=== PATIENT | male | born 1945 | race Caucasian/White ===

== ENCOUNTER 2018-07-16 00:41 | Inpatient (IN) | payer MEDICARE ==
[~2018-07-16] VITALS: Ht 175.3 cm; Wt 88.1 kg
[2018-07-16 02:09] LABS: BASOPHILS % 0.3 % (0.0-1.0); EOSINOPHILS # (AUTO) 0.6 (0.0-0.4); EOSINOPHILS % 5.2 % (0.0-6.0); HEMOGLOBIN 10.9 g/dL (14.0-18.0); LYMPHOCYTES # (AUTO) 1.9 (1.0-3.2); LYMPHOCYTES % 16.4 % (18.0-39.1); MEAN CORPUSCULAR HEMOGLOBIN 30.1 pg (28-32); MEAN CORPUSCULAR VOLUME 91.2 fL (81-99); MONOCYTES # (AUTO) 0.6 (0.2-0.8); MONOCYTES % 5.2 % (4.4-11.3); NEUTROPHILS # (AUTO) 8.3 (2.1-6.9); NEUTROPHILS % 72.3 % (38.7-80.0); PLATELET COUNT 183 x10e3/uL (140-360); RED BLOOD COUNT 3.62 x10e6/uL (4.3-5.7); RED CELL DISTRIBUTION WIDTH 13.6 % (11.7-14.4)
[2018-07-16 02:12] LABS: CLARITY,URINE CLEAR (CLEAR); COLOR,URINE YELLOW (YELLOW)
[2018-07-16 02:13] LABS: BILIRUBIN,URINE NEGATIVE (NEGATIVE); KETONES,URINE NEGATIVE (NEGATIVE); LEUKOCYTE ESTERASE ,URINE NEGATIVE (NEGATIVE); NITRITE,URINE NEGATIVE (NEGATIVE); PROTEIN,URINE DIPSTICK 2+ (NEGATIVE); URINE UROBILINOGEN 0.2 mg/dL (0.2 - 1)
[2018-07-16 02:16] LABS: INR 1.01; PROTHROMBIN TIME 14.2 seconds (11.9-14.5)
--- NOTE | 2018-07-16 02:19 | Diagnostic Imaging Report ---
EXAM: CHEST 2 VIEWS, PA and lateral INDICATION: Shortness of breath COMPARISON: None FINDINGS: LINES/TUBES: None LUNGS: Pulmonary edema. PLEURA: Trace bilateral pleural effusions. HEART AND MEDIASTINUM: Cardiac silhouette the upper limits of normal in size. Median sternotomy wires. BONES AND SOFT TISSUES: No acute findings. IMPRESSION: Pulmonary edema and trace bilateral pleural effusions. Signed by: Dr. Steff Rosa M.D. on 07/16/2018 2:16 AM
[2018-07-16 02:25] LABS: RBC,URINE 0-5 /HPF (0-5)
[2018-07-16 02:26] LABS: WBC,URINE (MAN) 0-5 /HPF (0-5)
[2018-07-16 02:27] LABS: ALBUMIN 3.5 g/dL (3.5-5.0); ALBUMIN/GLOBULIN RATIO 0.9 (0.8-2.0); ANION GAP 19.9 mmol/L (8-16); BACTERIA,URINE FEW /HPF; CALCIUM 9.3 mg/dL (8.4-10.2); CREATININE, SERUM 3.83 mg/dL (0.72-1.25); EPITHELIAL CELLS,URINE FEW /LPF; MAGNESIUM 1.9 MG/DL (1.3-2.1); POTASSIUM 3.9 mmol/L (3.5-5.1)
[2018-07-16 02:33] LABS: CREATINE KINASE MB 2.4 ng/mL (0-5.0)
[2018-07-16 02:39] LABS: PARTIAL THROMBOPLASTIN TIME 42.2 seconds (23.8-35.5)
[2018-07-16] MEDS ORDERED: FUROSEMIDE INJ 10 MG/ML 4 ML VIAL IV ONE (03:45)
[2018-07-16] MEDS ORDERED: ONDANSETRON HCL INJ 2 MG/ML VIAL IV PRN ×2 (04:45→11:00)
[2018-07-16] MEDS ORDERED: MORPHINE SULFATE 2 MG/ML SYR IV PRN (04:45)
[2018-07-16] MEDS ORDERED: LEVOTHYROXINE50 MCG PO (05:42)
[2018-07-16] MEDS ORDERED: ASPIRIN EC81 MG PO (05:42)
[2018-07-16] MEDS ORDERED: DOXAZOSIN MESYLA4 MG PO (05:42)
[2018-07-16] MEDS ORDERED: LOVASTATIN40 MG PO (05:42)
[2018-07-16] MEDS ORDERED: METOPROLOL TART50 MG PO (05:42)
[2018-07-16] MEDS ORDERED: AMLODIPINE BESY10 MG PO (05:42)
[2018-07-16] MEDS ORDERED: ALLOPURINOL100 MG PO (05:42)
[2018-07-16] MEDS ORDERED: DONEPEZIL HCL10 MG PO (05:42)
[2018-07-16] MEDS ORDERED: HYDRALAZINE HC100 MG PO (05:42)
[2018-07-16] MEDS: METOPROLOL TARTRATE 50 MG TAB PO SCH ×3 (06:04→17:51)
[2018-07-16 08:08] LABS: CREATINE KINASE MB 2.5 ng/mL (0-5.0)
[2018-07-16] MEDS: FAMOTIDINE 20 MG/2 ML VIAL IV SCH ×2 (09:52→20:53)
[2018-07-16] MEDS: ASPIRIN 81 MG ENTERIC COATED PO SCH (09:53)
[2018-07-16] MEDS ORDERED: ACETAMINOPHEN 325 MG TAB PO PRN (11:00)
--- NOTE | 2018-07-16 12:43 | History and Physical ---
CHIEF COMPLAINT: Shortness of breath on exertion. HPI: This is a 73-year-old male, in which he reports having a history of CABG many years ago, hypertension, hyperlipidemia, who is very noncompliant with his diet at home, comes in to the ED last night due to complaints of orthopnea and dyspnea on exertion. Patient reports that he has been having this for the last 3 days. He reports that he has significant amount of salt intake at home including orr and spam and he does eat some ___056___. He reports shortness of breath upon exertion, in which he gets very short winded. He denies any chest pain or palpitations. Denies any recent cough, congestion, or any fever. No history of allergies. Patient seen and evaluated at bedside on the medical floor, currently doing well in the ER. He is very tachypneic on examination. REVIEW OF SYSTEMS PERTINENT POSITIVE: Orthopnea, dyspnea on exertion, generalized weakness, and fatigue. PERTINENT NEGATIVE: Denies any chest pain, palpitation, nausea, vomiting, diarrhea, dysuria hematuria, frequency, urgency, lightheadedness, dizziness, abdominal pain, headache, cough, congestion, fever, or any other complaints. The rest of 14-point review of systems has been reviewed with the patient and are negative. ALLERGIES: NO KNOWN DRUG ALLERGIES. HOME MEDICATIONS: He takes; 1. Allopurinol 100 mg daily. 2. Norvasc 10 mg daily. 3. Aspirin 81 mg daily. 4. Hydralazine as needed. 5. Levothyroxine 50 mcg daily. 6. Lovastatin 40 mg daily. 7. Metoprolol tartrate 50 mg p.o. b.i.d. PAST MEDICAL HISTORY: He has history of gout, hypertension, heart failure with CABG in the past, hyperlipidemia, history of dementia. SURGICAL HISTORY: History of CABG in the past. FAMILY HISTORY: Hypertension and diabetes. SOCIAL HISTORY: No drugs. No alcohol. Does not smoke. Good social support. PHYSICAL EXAMINATION VITAL SIGNS: Temperature is 98.5, pulse is 126, respiratory rate is 20, blood pressure 137/94, pulse ox 98% on room air. GENERAL: Not in acute distress, alert and oriented x3. Cooperative on examination. HEENT: Head normocephalic and atraumatic. Eyes; pupils equal and reactive to light bilaterally. Extraocular movements are intact bilaterally. Throat; no evidence of erythema or exudates in the posterior pharynx. Has poor dentition. NECK: Supple. Good range of motion. PULMONARY: Clear to auscultation bilaterally. Positive rales bilaterally. Mild crackles appreciated in the lower bases. No wheezing appreciated. CARDIOVASCULAR: Positive S1, S2. No murmurs, rubus, or gallops appreciated. ABDOMEN: Soft, nondistended, nontender to palpation. Bowel sounds present. MUSCULOSKELETAL: Strength is 5/5 throughout. No evidence of any musculoskeletal deficit on examination. No weakness appreciated. NEUROLOGIC: Cranial nerves II through XII are grossly intact. No evidence of any neurological deficit on exam. SKIN: Intact. Warm to touch. Good cap refill. PSYCHIATRIC: Normal affect and mood. EXTREMITIES: No edema. Good range of motion throughout. LAB FINDINGS: Show white count of 11.4, hemoglobin 10.9, hematocrit is 33, and platelets of 183. Coagulation; PT 14.2, INR 1, and PTT 42. Chemistry; sodium 142, potassium 3.9, chloride 111, bicarb 15, anion gap of 19, BUN is 38, creatinine 3.8, glucose 98, calcium 9.3, magnesium 1.9, total bilirubin is 0.6, AST 19, ALT 12, alk phos 77. CK is 46, troponin is 0.88, BNP 453. Total protein 7.2, albumin is 2.5. Urinalysis was found to be negative. IMAGING STUDIES: Chest x-ray; pulmonary edema with trace bilateral pleural effusion. IMPRESSION 1. Acute exacerbation of congestive heart failure, likely systolic and diastolic dysfunction. 2. Chronic kidney disease, stage 4-5. 3. Hypertension. 4. Hyperlipidemia. 5. Benign prostatic hypertrophy. 6. Medical noncompliance. 7. Anasarca. PLAN: At this time, cardiology will be consulted. A 2D echocardiogram has been performed, but pending final read. Put him on Lasix 40 mg IV q.6 hours x4 doses. Replace potassium. Resume all antihypertensive medications except for LINDA and ARBs. In relation to his renal failure, I am going to get a renal ultrasound to evaluate for chronicity of disease and possibly underlying obstruction. I have no other creatinine to compare. We are going to get a lipid panel and continue with oral simvastatin. For prophylaxis, we will put him on heparin. Fluid, electrolytes, and nutrients. We will put him on a heart-healthy diet. No IV fluids indicated. We will get PT/OT eval as well. We will start on anti-nausea medication as well as Tylenol p.r.n. Job#: [id number] H[place]
[2018-07-16] MEDS: FUROSEMIDE INJ 10 MG/ML 4 ML VIAL IV SCH ×3 (13:00→23:28)
[2018-07-16 16:14] LABS: CREATINE KINASE MB 2.2 ng/mL (0-5.0)
[2018-07-16] MEDS ORDERED: METOPROLOL TARTRATE 50 MG TAB PO SCH (17:00)
[2018-07-16] MEDS: SODIUM BICARBONATE 650 MG TAB PO SCH (17:52)
--- NOTE | 2018-07-16 18:10 | NUR ---
RECEIVED TO RM AAOX3 NO DISTRESS NOTED, UPDATED ON POC VOICED UNDERSTANDING, O2 @ 2l NC, L AC 20G SL NO SS OF INFILTRATION NOTED, BRIGHT TO BSD WITH YELLOW URINE NOTED, RESPIRATORY EVEN/ UNLABORED, DENIES PAIN, PITTED EDEMA TO BLE, NO OTHER CO VOICED CALL LIGHT IN REACH WILL CONTINUE TO MONITOR
[2018-07-16 18:42] VITALS: BP 140/84
--- NOTE | 2018-07-16 19:20 | NUR ---
Received patient awake on bed, with oxygen support via NC at 2L.Reinoso catheter in place, draining yellow urine output. Call light within reached, bed alarm on, bed in low position and locked. Advised patient to call for assistance when needed. Patient instructed complete bed rest. Patient is wheezing and short of breath. HR runs in the 130's, Dr. Smith is aware per dayshift, patient on Lopressor po BID. Will continue to monitor closely
--- NOTE | 2018-07-16 19:30 | NUR ---
Called RT to check if patient has breathing treatment due, no breathing treatment ordered. Will follow up with
--- NOTE | 2018-07-16 19:50 | NUR ---
Spoke to Dr. Nuñez and relayed events with orders for Xopenex Q6H PRN
[2018-07-16 20:00] VITALS: BP 109/91
[2018-07-16] MEDS: LEVALBUTEROL HCL SOLN NEBU 1.25 MG/3 ML NEB INH PRN (20:30)
[2018-07-16] MEDS: DONEPEZIL HCL 5 MG TAB PO SCH (20:53)
[2018-07-16] MEDS: HEPARIN SOD (PORCINE) 5,000 UNIT/ML VIAL SC SCH (20:54)
[2018-07-16] MEDS: SIMVASTATIN 40 MG TAB PO SCH (20:54)
[2018-07-16 21:00] VITALS: BP 109/91
--- NOTE | 2018-07-16 21:34 | NUR ---
Cardiology Consult Dictation# [id number]
[2018-07-16 23:52] LABS: CHOL/HDL RATIO 3.5 (3.9-4.7)
[2018-07-17] VITALS (7 sets, daily range): BP systolic 116–142; BP diastolic 72–88
[2018-07-17] MEDS: LEVALBUTEROL HCL SOLN NEBU 1.25 MG/3 ML NEB INH PRN (01:05)
--- NOTE | 2018-07-17 01:06 | Consultation ---
DATE OF CONSULTATION: July 16, 2018 CARDIOLOGY CONSULTATION REQUESTING PHYSICIAN: Dr. Lucretia Nuñez REASON FOR CONSULTATION: Congestive heart failure. HISTORY OF PRESENT ILLNESS: This is a 73-year-old man with history of coronary artery disease status post 4-vessel CABG, hypertension, and hyperlipidemia, who presented with complaints of shortness of breath. The patient indicates he has been short of breath with symptoms suggestive of orthopnea and PND for the last 2 days. He reports occasional palpitations, but denies any chest pain or lower extremity edema. Cardiology is consulted for management of patient's congestive heart failure. On evaluation in the ER, the patient was found to have creatinine elevation to 3.83 with an elevated BNP at 454. Chest x-ray demonstrated pulmonary edema and trace bilateral pleural effusions. REVIEW OF SYSTEMS: Negative except as per HPI. PAST MEDICAL HISTORY: 1. Coronary artery disease status post 4-vessel CABG. 2. Hypertension. 3. Hyperlipidemia. PAST SURGICAL HISTORY: Coronary artery bypass surgery. ALLERGIES: NO KNOWN DRUG ALLERGIES. MEDICATIONS: Please see EMR. SOCIAL HISTORY: Denies tobacco, alcohol, or illicit drugs. FAMILY HISTORY: Pertinent for brother with congestive heart failure. PHYSICAL EXAMINATION: VITAL SIGNS: Temperature 98.5 degrees, pulse 130, respiratory rate 17, blood pressure 134/88, oxygen saturation 96% on 2 liters nasal cannula. GENERAL: Obese gentleman, well developed, well nourished. HEENT: Normocephalic, atraumatic. Pupils equal. No scleral icterus. NECK: Supple. No thyromegaly or cervical lymphadenopathy. No carotid bruits. LUNGS: Clear to auscultation with crackles in bilateral bases. No wheezes. CARDIOVASCULAR: Tachycardic but regular. No murmur. Normal S1 and S2. ABDOMEN: Soft, nontender. EXTREMITIES: 1+ pitting edema bilaterally. NEURO: Nonfocal exam. LABS: Sodium 142, potassium 3.9, chloride 111, CO2 15, BUN 38, creatinine 3.83. Troponin 0.63. BNP 454. WBC 11.43, hemoglobin 10.9, hematocrit 33, platelets 183,000. INR 1.01. EKG, normal sinus rhythm, possible left atrial enlargement, nonspecific ST and T-wave abnormalities. IMPRESSION: 1. Kdtci-md-pcfyimz systolic heart failure. 2. Acute kidney injury versus chronic kidney disease. 3. Sinus tachycardia. 4. Hypertension. 5. Hyperlipidemia. RECOMMENDATIONS: Agree with diuresis. Continue home cardiac medications. However, given systolic heart failure, would discontinue amlodipine, so patient may have adequate blood pressure room for titration of his optimal heart failure therapy. Monitor creatinine closely. Replete electrolytes. Patient indicates no history of congestive heart failure. We will need to perform ischemic evaluation if that is the case if his renal function permits. Check lipid panel in the morning. Would not increase beta blockade at this time as patient is in congestive heart failure exacerbation. Monitor patient closely on telemetry. Thank you for this consult. We will continue to follow. Job#: [id number] DR STEELE
[2018-07-17 05:47] LABS: BASOPHILS # (AUTO) 0.1 (0.0-0.1); BASOPHILS % 0.4 % (0.0-1.0); EOSINOPHILS # (AUTO) 0.2 (0.0-0.4); EOSINOPHILS % 1.8 % (0.0-6.0); HEMATOCRIT 32.1 % (38.2-49.6); HEMOGLOBIN 10.5 g/dL (14.0-18.0); LYMPHOCYTES # (AUTO) 2.2 (1.0-3.2); LYMPHOCYTES % 18.6 % (18.0-39.1); MEAN CORPUSCULAR HEMOGLOBIN 30.1 pg (28-32); MEAN CORPUSCULAR HGB CONC 32.7 g/dL (31-35); MONOCYTES # (AUTO) 0.6 (0.2-0.8); MONOCYTES % 4.9 % (4.4-11.3); NEUTROPHILS # (AUTO) 8.8 (2.1-6.9); NEUTROPHILS % 73.6 % (38.7-80.0); PLATELET COUNT 209 x10e3/uL (140-360); RED BLOOD COUNT 3.49 x10e6/uL (4.3-5.7); RED CELL DISTRIBUTION WIDTH 13.7 % (11.7-14.4)
[2018-07-17] MEDS: FUROSEMIDE INJ 10 MG/ML 4 ML VIAL IV SCH ×4 (05:51→23:28)
[2018-07-17] MEDS: LEVOTHYROXINE SODIUM 50 MCG TAB PO SCH (05:52)
[2018-07-17 06:04] LABS: ALBUMIN 3.3 g/dL (3.5-5.0); ANION GAP 20.1 mmol/L (8-16); CALCIUM 9.2 mg/dL (8.4-10.2); CHOL/HDL RATIO 4.1 (3.9-4.7); CREATININE, SERUM 4.18 mg/dL (0.72-1.25); POTASSIUM 4.1 mmol/L (3.5-5.1)
[2018-07-17] MEDS ORDERED: AMLODIPINE BESYLATE 10 MG TAB PO SCH (09:00)
[2018-07-17] MEDS ORDERED: ASPIRIN 81 MG ENTERIC COATED PO SCH (09:00)
[2018-07-17] MEDS: FAMOTIDINE 20 MG/2 ML VIAL IV SCH ×2 (09:15→21:40)
[2018-07-17] MEDS: ASPIRIN 81 MG ENTERIC COATED PO SCH (09:15)
[2018-07-17] MEDS: DOXAZOSIN MESYLATE 2 MG TAB PO SCH (09:15)
[2018-07-17] MEDS: SODIUM BICARBONATE 650 MG TAB PO SCH ×2 (09:16→17:02)
[2018-07-17] MEDS: ALLOPURINOL 100 MG TAB PO SCH (09:16)
[2018-07-17] MEDS: METOPROLOL TARTRATE 50 MG TAB PO SCH ×2 (09:17→17:02)
[2018-07-17] MEDS: HEPARIN SOD (PORCINE) 5,000 UNIT/ML VIAL SC SCH ×2 (09:42→21:41)
[2018-07-17] MEDS ORDERED: METHYLPREDNISOLONE SOD SUCC 40 MG/ML VIAL IV SCH (10:00)
[2018-07-17] MEDS: METHYLPREDNISOLONE SOD SUCC 40 MG/ML VIAL IV SCH ×2 (10:44→18:12)
--- NOTE | 2018-07-17 10:44 | Progress Note ---
DATE: July 17, 2018 SUBJECTIVE: The patient still has some wheezing and shortness of breath on examination. Denies any chest pain. He had a significant amount of urine output. OBJECTIVE VITAL SIGNS: Temperature is 98.3. His pulse is 131. Blood pressure 142/88. Pulse ox 99%, and he is on 3 liters nasal cannula. LAB FINDINGS: White count 11.9, hemoglobin 10.5, hematocrit 32, platelets 209. Coagulation: PT 14, INR 1, PTT 42. Chemistry: Sodium 143, potassium 4.1, chloride 109, bicarb 18, anion gap 20, BUN 45, creatinine 4.1. Glucose is 88. Calcium 9.2. LFTs were normal. Urinalysis is negative. IMAGING STUDIES: None. PHYSICAL EXAMINATION GENERAL: Not in acute distress, alert and oriented x3. Cooperative on examination. HEENT: Head is normocephalic and atraumatic. Eyes: Pupils are equal and reactive to light bilaterally. Extraocular movements are intact bilaterally. NECK: Supple. Good range of motion. THROAT: No evidence of erythema or exudates in the posterior pharynx. Has poor dentition. PULMONARY: He has expiratory wheezing appreciated. Fine crackles and rales. CARDIOVASCULAR: Positive S1, S2. No murmurs, rubs, or gallops appreciated. ABDOMEN: Soft, nondistended, nontender to palpation. Bowel sounds present. MUSCULOSKELETAL: Strength is 5/5 throughout. No evidence of any muscle deficit on examination. No weakness appreciated. NEUROLOGIC: Cranial nerves II through XII are grossly intact. No evidence of any neurological deficit on exam. SKIN: Intact. Warm to touch. Good cap refill. PSYCHIATRIC: Normal affect and mood. EXTREMITIES: He has 2+ pedal edema bilaterally with anasarca. IMPRESSION 1. Acute exacerbation of congestive heart failure, with systolic and diastolic dysfunction. Concern for underlying cardiorenal syndrome. 2. Chronic kidney disease, stage 4-5, likely due to underlying cardiorenal syndrome with last creatinine back in November 2017 at primary care physician's office to be 3.3. 3. Hypertension. 4. Hyperlipidemia. 5. BPH. 6. Medical noncompliance. 7. Anasarca. PLAN: At this time, I will continue with IV diuretic 60 mg IV q.6 h. I discussed with him about the possible need of hemodialysis, and he does not seem to be in agreement at this time. I will continue with IV diuretics aggressively to help his shortness of breath. I will also add some IV Solu-Medrol. We will repeat labs in the morning. Avoid ACEs and ARBs. In relation to his cardiac issues, it seems like if I put him on dialysis, then a left heart cath would be advisable; but at this time, he is not in agreement to any kind of hemodialysis, so we will just continue to aggressively diuresis him and talk to him on a daily basis. Will put him on a healthy heart diet. Continue with PT and OT. Will continue to monitor him closely. We will get a chest x-ray in the morning. Job#: [id number]
--- NOTE | 2018-07-17 12:25 | Progress Note ---
DATE: July 17, 2018 CARDIOLOGY PROGRESS NOTE SUBJECTIVE: Patient denies chest pain. He reports his breathing is better. OBJECTIVE VITAL SIGNS: Temperature 97.6 degrees, pulse 113, respiratory rate 19, blood pressure 142/88, oxygen saturation 94% on 3 L nasal cannula. GENERAL: Obese gentleman, in no acute distress. Awake and alert. LUNGS: Clear to auscultation bilaterally. No wheezes or crackles. CARDIOVASCULAR: Tachycardic, but regular. No murmur. Normal S1, S2. ABDOMEN: Soft, nontender. EXTREMITIES: 1+ pitting edema bilaterally. CARDIAC MEDICATIONS 1. Metoprolol 50 mg p.o. b.i.d. 2. Doxazosin 4 mg p.o. daily. 3. Aspirin 81 mg p.o. q.a.m. 4. Levothyroxine 50 mcg p.o. daily. 5. Furosemide 60 mg IV q.6 hours. LABS: WBC 11.92, hemoglobin 10.5, hematocrit 32.1, platelets 209. Sodium 143, potassium 4.1, chloride 109, CO2 of 28, BUN 45, creatinine 4.18. TELEMETRY: Sinus tachycardia. IMPRESSION 1. Mgmdv-cb-pzncpzj systolic heart failure. 2. Acute kidney injury versus chronic kidney disease. 3. Sinus tachycardia. 4. Hypertension. 5. Hyperlipidemia. RECOMMENDATIONS: Continue diuresis. Recommend continuation of metoprolol at current dose. He will need addition of LINDA/ARB if his creatinine improves. Monitor closely. Patient will need ischemic evaluation if renal function permits once he is euvolemic. Watch closely on telemetry. Thank you for this consult. We will continue to follow. Job#: [id number] KARRI STEELE
--- NOTE | 2018-07-17 12:55 | Diagnostic Imaging Report ---
EXAMINATION: Renal ultrasound. CLINICAL HISTORY :Acute kidney injury COMPARISON: <None available.> TECHNIQUE: Grayscale and color Doppler evaluation of the kidneys and bladder was performed in transverse and longitudinal planes. DISCUSSION: RIGHT KIDNEY: The right kidney measures 24 cm in length and is replaced with innumerable predominantly anechoic lesions of varying sizes, some of which have low-level internal echoes. The largest individual cyst measures approximately 8.5 cm. LEFT KIDNEY: The left kidney measures 20.6 cm in length and is replaced with innumerable predominantly anechoic lesions of various sizes, some of which have low-level internal echoes. The largest individual cyst measures proximally 6.3 cm. Renal cortices are poorly visualized secondary to presence of cysts. BLADDER: Collapsed around a Reinoso catheter IMPRESSION: Findings consistent with autosomal dominant polycystic kidney disease. Signed by: Dr. Fausto Ndiaye M.D. on 07/17/2018 12:51 PM
[2018-07-17] MEDS: SIMVASTATIN 40 MG TAB PO SCH (21:40)
[2018-07-17] MEDS: DONEPEZIL HCL 5 MG TAB PO SCH (21:40)
[2018-07-18 01:41] VITALS: BP 134/56
[2018-07-18] MEDS: METHYLPREDNISOLONE SOD SUCC 40 MG/ML VIAL IV SCH (02:02)
[2018-07-18] MEDS: LEVOTHYROXINE SODIUM 50 MCG TAB PO SCH (05:41)
[2018-07-18] MEDS: FUROSEMIDE INJ 10 MG/ML 4 ML VIAL IV SCH (05:41)
[2018-07-18 06:01] LABS: HEMATOCRIT 29.5 % (38.2-49.6); HEMOGLOBIN 9.9 g/dL (14.0-18.0); LYMPHOCYTES # (AUTO) 0.7 (1.0-3.2); LYMPHOCYTES % 9.7 % (18.0-39.1); MEAN CORPUSCULAR HEMOGLOBIN 30.3 pg (28-32); MEAN CORPUSCULAR HGB CONC 33.6 g/dL (31-35); MEAN CORPUSCULAR VOLUME 90.2 fL (81-99); MONOCYTES % 0.6 % (4.4-11.3); NEUTROPHILS # (AUTO) 6.4 (2.1-6.9); NEUTROPHILS % 89.1 % (38.7-80.0); PLATELET COUNT 188 x10e3/uL (140-360); RED BLOOD COUNT 3.27 x10e6/uL (4.3-5.7); RED CELL DISTRIBUTION WIDTH 13.5 % (11.7-14.4)
[2018-07-18 06:37] VITALS: BP 136/84
[2018-07-18 06:40] LABS: ANION GAP 21.6 mmol/L (8-16); CALCIUM 9.1 mg/dL (8.4-10.2); CREATININE, SERUM 5.26 mg/dL (0.72-1.25); POTASSIUM 4.6 mmol/L (3.5-5.1)
--- NOTE | 2018-07-18 07:51 | Diagnostic Imaging Report ---
EXAM: CHEST SINGLE (PORTABLE), PA and lateral INDICATION: Shortness of breath COMPARISON: Chest radiograph 07/16/2018. FINDINGS: LINES/TUBES: None LUNGS: Low lung volumes. Improving mild bilateral perihilar and interstitial opacities. Mild patchy bibasilar opacities, likely atelectasis. No evidence of lobar consolidation. PLEURA: Trace bilateral pleural effusions. No evidence of pneumothorax. HEART AND MEDIASTINUM: The cardiomediastinal silhouette is unchanged. BONES AND SOFT TISSUES: No acute findings. Status post median sternotomy. IMPRESSION: Improving mild pulmonary interstitial edema. Persistent small bilateral pleural effusions. Mild patchy bibasilar opacities, likely atelectasis. Signed by: Dr. Manju Benson MD on 07/18/2018 7:47 AM
[2018-07-18 08:34] VITALS: BP 147/85
[2018-07-18] MEDS: HEPARIN SOD (PORCINE) 5,000 UNIT/ML VIAL SC SCH ×2 (09:00→20:33)
[2018-07-18] MEDS: FAMOTIDINE 20 MG/2 ML VIAL IV SCH ×2 (09:01→20:33)
[2018-07-18] MEDS: ASPIRIN 81 MG ENTERIC COATED PO SCH (09:01)
[2018-07-18] MEDS: DOXAZOSIN MESYLATE 2 MG TAB PO SCH (09:01)
[2018-07-18] MEDS: METOPROLOL TARTRATE 50 MG TAB PO SCH ×2 (09:02→17:02)
[2018-07-18] MEDS: ALLOPURINOL 100 MG TAB PO SCH (09:02)
[2018-07-18] MEDS: SODIUM BICARBONATE 650 MG TAB PO SCH ×2 (09:02→17:02)
--- NOTE | 2018-07-18 10:47 | Progress Note ---
DATE: July 18, 2018 INTERNAL MEDICINE PROGRESS NOTE SUBJECTIVE: The patient is still short of breath on examination. After reviewing his renal ultrasound, it is consistent with polycystic kidney disease. In further discussion with the patient with the nurse present, he reports that he was told in the past that he had polycystic kidney disease. His kidney sizes are greater than 20 cm bilaterally. He occasionally complains of flank pain. He denies any hematuria or any chronic urinary tract infections. I discussed with him about hemodialysis, and he is in agreement to start hemodialysis. OBJECTIVE VITAL SIGNS: Temperature is 97.1, pulse 120, respiratory rate 20, blood pressure 147/85. Pulse ox is 99%. He is on 3 liters nasal cannula. LABS: White count 7.1, hemoglobin 9.9, hematocrit 29.5, platelets 188. Coagulation: PT 14, INR 1, PTT 42.2. Chemistry: Sodium 142, potassium 4.6, chloride 106, bicarb 19, anion gap 21, BUN 61, creatinine 5.6, calcium 9.1. Urinalysis is negative. IMAGING STUDIES: Chest x-ray from this morning shows some improving mild pulmonary interstitial edema. The patient has small bilateral pleural effusions. His renal ultrasound is consistent with autosomal-dominant polycystic kidney disease with the right kidney measuring 24 cm in length and the left kidney measuring 20.6 cm. PHYSICAL EXAMINATION GENERAL: Not in acute distress, alert and oriented x3. Cooperative on examination. HEENT: Head is normocephalic and atraumatic. Eyes: Pupils are equal and reactive to light bilaterally. Extraocular movements are intact bilaterally. NECK: Supple. Good range of motion. THROAT: No evidence of erythema or exudates in the posterior pharynx. Has poor dentition. PULMONARY: He has positive rales, positive fine crackles. No expiratory wheezing appreciated. Good inspiratory effort. CARDIOVASCULAR: Positive S1, S2. No murmurs, rubs, or gallops appreciated. ABDOMEN: Soft, nondistended, nontender to palpation. Bowel sounds present. MUSCULOSKELETAL: Strength is 5/5 throughout. No evidence of any musculoskeletal deficit on examination. No weakness appreciated. NEUROLOGIC: Cranial nerves II through XII are grossly intact. No evidence of any neurological deficit on exam. SKIN: Intact. Warm to touch. Good cap refill. PSYCHIATRIC: Normal affect and mood. EXTREMITIES: No edema. Good range of motion throughout. IMPRESSION 1. Acute exacerbation of congestive heart failure, with systolic and diastolic dysfunction. Concern for underlying cardiorenal syndrome. 2. Chronic kidney disease, stage 5, likely due to multifactorial but most likely due to polycystic kidney disease seen on renal ultrasound as well as possibly cardiorenal and longstanding hypertension. 3. Hypertension. 4. Hyperlipidemia. 5. BPH. 6. Medical noncompliance. 7. Anasarca. PLAN: At this time, I am going to put him on Lasix drip at 10 mg per hour. He is still very short of breath on exam. Labs are consistent with worsening renal function. He is known to have CKD, stage 4, back in November 2017 at the PCP's office. At this time, I discussed with him about hemodialysis as an outpatient. He is in agreement. We will make him n.p.o. after midnight and go ahead and put a dialysis tunneled catheter and arrange for outpatient hemodialysis. Discussed with case management. The patient has agreed, and I discussed with him the benefits in relation to dialysis, and he seems to be in agreement at this time. He will discuss this with his as well. There was apparently a family history of polycystic kidney disease as well as renal failure. Will continue to monitor his labs closely and get a.m. labs. His heart rate is elevated, and I will add some metoprolol 25 mg twice a day. Job#: [id number]
[2018-07-18 12:27] VITALS: BP 155/87
[2018-07-18] MEDS: FUROSEMIDE INJ 100 MG in SODIUM CHLORIDE 0.9% 100 ML 90 ML IV SCH (12:30)
--- OUTSIDE RECORDS SUMMARY | 2018-07-18 13:56 | XMS REPORT ---
Author Author [facility] Address Unknown Phone Unavailable Care Team Providers Care Skating Carhop Name Role Phone Nicanor COMBS Unavailable Unavailable Problems This patient has no known problems. Allergies, Adverse Reactions, Alerts This patient has no known allergies or adverse reactions. Medications This patient has no known medications. Results Test Description Test Time Test Comments Text Results Atomic Results Result Comments CHEST SINGLE (PORTABLE) 2018-07-18 07:45:00 [place] [address] Patient Name: IMAN MCKEON MR #: [id number] : 1945 Age/Sex: 73/M Req #: [id number] Adm Physician: BON COMBS MD Ordered by: BON OCMBS MD Report #: [id number] Location: [facility] Room/Bed: [facility] Procedure: [id number] DX/CHEST SINGLE (PORTABLE) Exam Date: 07/18/18 Exam Time: 0635 REPORT STATUS: Signed EXAM: CHEST SINGLE (PORTABLE), PA and lateral IND ICATION: Shortness of breath COMPARISON: Chest radiograph 07/16/2018. FINDINGS: LINES/TUBES: None LUNGS: Low lung volumes. Improving mild bilateral perihilar and interstitial opacities. Mild patchy bibasilar opacities, likely atelectasis. No evidence of lobar consolidation. PLEURA: Trace bilateral pleural effusions. No evidence of pneumothorax. HEART AND MEDIASTINUM: The cardiomediastinal silhouette is unchanged. BONES AND SOFT TISSUES: No acute findings. Status post median sternotomy. IMPRESSION: Improving mild pulmonary interstitial edema. Persistent small bilateral pleural effusions. Mild patchy bibasilar opacities, likely atelectasis. Signed by: Dr. Jeffery Mosher MD on 07/18/2018 7:47 AM Dictated By: JEFFERY MOSHER MD 6 Transcribed By: JUVE on 07/18/18746 COPY TO: BON COMBS MD US RENAL RETROPERITONEAL COMP 2018-07-17 12:49:00 [place] [address] Patient Name: IMAN MCKEON MR #: [id number] : 1945 Age/Sex: 73/M Req #: [id number] Adm Physician: BON COMBS MD Ordered by: BON COMBS MD Report #: [id number] Location: MED/SURG2 Room/Bed: [facility] Procedure: [id number] US/US RENAL RETROPERITONEAL COMP Exam Date: Exam Time: REPORT STATUS: Signed EXAMINATION: Renal ultrasound. CLINICAL HISTORY :Acute kidney injury COMPARISON: <None available.> TECHNIQUE: Grayscale and color Doppler evaluation of the kidneys and bladder was performed in transverse and longitudinal planes. DISCUSSION: RIGHT KIDNEY: The right kidney measures 24 cm in length and is replaced with innumerable predominantly anechoic lesions of varying sizes, some of which have low-level internal echoes. The largest individual cyst measures approximately 8.5 cm. LEFT KIDNEY: The left kidney measures 20.6 cm in length and is replaced with innumerable predominantly anechoic lesions of various sizes, some of which have low-level internal echoes. The largest individual cyst measures proximally 6.3 cm. Renal cortices are poorly visualized se condary to presence of cysts. BLADDER: Collapsed around a Reinoso catheter IMPRESSION: Findings consistent with autosomal dominant polycystic kidney disease. Signed by: Dr. Shanelle Gooden M.D. on 07/17/2018 12:51 PM Dictated By: SHANELLE GOODEN MD 1251 Transcribed By: JUVE on 07/17/18 1251 COPY TO: BON COMBS MD CHEST 2 VIEWS 2018-07-16 02:15:00 [place] [address] Patient Name: IMAN MCKEON MR #: [id number] : 1945 Age/Sex: 73/M Req #: [id number] Adm Physician: Ordered by: MAYCOL CHAVIS MD Report #: [id number] Location: ER Room/Bed: Procedure: [id number] DX/CHEST 2 VIEWS Exam Date: 07/16/18 Exam Time: 0150 REPORT STATUS: Signed EXAM: CHEST 2 VIEWS, PA and lateral INDICATION: Shortness of breath COMPARISON: None FINDINGS: LINES/TUBES: None LUNGS: Pulmonary edema. PLEURA: Trace bilateral pleural effusions. HEART AND MEDIASTINUM: Cardiac silhouette the upper limits of normal in size. Median sternotomy wires. BONES AND SOFT TISSUES: No acute findings. IMPRESSION: Pulmonary edema and trace bilateral pleural effusions. Signed by: Dr. Aretha Rosa M.D. on 07/16/2018 2:16 AM Dictated By: ARETHA ROSA MD 5 Transcribed By: JUVE on 07/16/18215 COPY TO: MAYCOL CHAVIS MD
--- NOTE | 2018-07-18 15:10 | NUR ---
PT IS ALERT AND ORIENTED. STATES IS LIVES IN OWN HOME WITH AND SON. IS ANTONI [phone]. STATES HAS CANES, WALKERS AND WHEELCHAIR AT HOME ALREADY, STATES HE WOULD LIKE TO GO TO [facility] [place] [facility] CARE ABOUT DAYS OF WEEK OR TIME JUST NEEDS ASSISTANCE WITH TRANSPORTATION BACK AND FORTH. DOESN'T WANT TO HAVE TO WORRY HIS . [facility] IS [facility] [place]. HAS HOME [facility]ALTH THAT COMES EVERY OTHER DAY AND STAYS A COUPLE OF HOURS. STATES HIS PLAN IS TO RETURN HOME IF HE CAN. CALLED [facility] TO GET INFORMATION FAX [phone]. SPOKE WITH WENDIE WHOM STATES TO GO AHEAD AND FAX DEMOGRAPHIC INFORMATION TO START THE PROCESS.
[2018-07-18 20:33] VITALS: BP 137/98
[2018-07-18] MEDS: DONEPEZIL HCL 5 MG TAB PO SCH (20:33)
[2018-07-18] MEDS: SIMVASTATIN 40 MG TAB PO SCH (20:33)
--- NOTE | 2018-07-18 23:23 | Progress Note ---
DATE: July 18, 2018 CARDIOLOGY PROGRESS NOTE SUBJECTIVE: Patient denies chest pain or shortness of breath. OBJECTIVE: VITAL SIGNS: Temperature 97.3 degrees, pulse 134, respiratory rate 20, blood pressure 155/87, oxygen saturation 100% on 2 liters nasal cannula. GENERAL: Obese gentleman, in no acute distress, awake and alert. LUNGS: Clear to auscultation bilaterally. No wheezes or crackles. CARDIOVASCULAR: Tachycardic, irregular. No murmur. Normal S1 and S2. ABDOMEN: Soft, nontender. EXTREMITIES: 1+ pitting edema bilaterally. CARDIAC MEDICATIONS: Simvastatin 40 mg p.o. nightly, metoprolol tartrate 75 mg p.o. b.i.d., Lasix drip 10 mg an hour, aspirin 81 mg p.o. daily, levothyroxine 50 mcg p.o. daily. LABS: WBC 7.12, hemoglobin 9.9, hematocrit 29.5, platelets 188,000. Sodium 142, potassium 4.6, chloride 106, CO2 19, BUN 61, creatinine of 5.26. TELEMETRY: Atrial flutter. IMPRESSION: 1. Aekbl-ft-lkiodes systolic heart failure. 2. Acute kidney injury on chronic kidney disease. 3. Atrial flutter with rapid ventricular response. 4. Hypertension. 5. Hyperlipidemia. RECOMMENDATIONS: Continue diuresis. Patient will be initiated on hemodialysis given poor urine output and difficulty with volume removal. Noted increase in metoprolol dose, he will likely need further increase. Patient's CHADS-VASc score is 3, which warrants anticoagulation. Hold for now given planned insertion of hemodialysis catheter. We will need to discuss anticoagulation after catheter has been inserted. If patient is declared end-stage renal disease, he will need ischemic evaluation. Monitor patient on telemetry. Thank you for this consult. We will continue to follow. Job#: [id number] DR STEELE
[2018-07-19] VITALS (8 sets, daily range): BP systolic 118–163; BP diastolic 51–97
[2018-07-19] MEDS: FUROSEMIDE INJ 100 MG in SODIUM CHLORIDE 0.9% 100 ML 90 ML IV SCH ×2 (02:26→06:30)
[2018-07-19 05:09] LABS: BASOPHILS % 0.1 % (0.0-1.0); HEMATOCRIT 27.6 % (38.2-49.6); HEMOGLOBIN 9.2 g/dL (14.0-18.0); LYMPHOCYTES # (AUTO) 1.3 (1.0-3.2); LYMPHOCYTES % 9.9 % (18.0-39.1); MEAN CORPUSCULAR HEMOGLOBIN 30.4 pg (28-32); MEAN CORPUSCULAR HGB CONC 33.3 g/dL (31-35); MEAN CORPUSCULAR VOLUME 91.1 fL (81-99); MONOCYTES # (AUTO) 0.8 (0.2-0.8); MONOCYTES % 6.2 % (4.4-11.3); NEUTROPHILS # (AUTO) 11.2 (2.1-6.9); NEUTROPHILS % 83.1 % (38.7-80.0); PLATELET COUNT 170 x10e3/uL (140-360); RED BLOOD COUNT 3.03 x10e6/uL (4.3-5.7); RED CELL DISTRIBUTION WIDTH 13.4 % (11.7-14.4)
[2018-07-19] MEDS: LEVOTHYROXINE SODIUM 50 MCG TAB PO SCH (05:38)
[2018-07-19 05:57] LABS: ANION GAP 22.3 mmol/L (8-16); CALCIUM 8.5 mg/dL (8.4-10.2); CREATININE, SERUM 5.63 mg/dL (0.72-1.25); POTASSIUM 4.3 mmol/L (3.5-5.1)
--- NOTE | 2018-07-19 07:10 | NUR ---
Report given to AM nurse,walking round done. No issued noted.
[2018-07-19] MEDS: ALLOPURINOL 100 MG TAB PO SCH (09:16)
[2018-07-19] MEDS: DOXAZOSIN MESYLATE 2 MG TAB PO SCH (09:16)
[2018-07-19] MEDS: ASPIRIN 81 MG ENTERIC COATED PO SCH (09:16)
[2018-07-19] MEDS: SODIUM BICARBONATE 650 MG TAB PO SCH ×2 (09:16→17:05)
[2018-07-19] MEDS: FAMOTIDINE 20 MG/2 ML VIAL IV SCH ×2 (09:16→21:08)
[2018-07-19] MEDS: METOPROLOL TARTRATE 50 MG TAB PO SCH ×2 (09:16→17:05)
[2018-07-19] MEDS: HEPARIN SOD (PORCINE) 5,000 UNIT/ML VIAL SC SCH ×2 (09:17→21:07)
--- NOTE | 2018-07-19 10:26 | Progress Note ---
DATE: July 19, 2018 INTERNAL MEDICINE PROGRESS NOTE SUBJECTIVE: The patient is doing well today with no complaints. He did agree to dialysis. We are going to get a tunneled dialysis catheter later today. I also discussed this with cardiology, and the patient will likely need a left heart cath prior to being discharged home. OBJECTIVE VITAL SIGNS: Temperature is 96.7. Pulse is 112. Blood pressure was 156/79. Respiratory rate is 22. LAB FINDINGS: White count 13.5, hemoglobin 9.2, hematocrit 27.6, platelets 170. Chemistry: Sodium 137, potassium 4.3, chloride 102, bicarb 17, anion gap 22, BUN 87, creatinine 5.6, glucose 102. Urinalysis was found to be negative. IMAGING STUDIES: Chest x-ray: Improved mild pulmonary interstitial edema. Persistent small bilateral pleural effusions. PHYSICAL EXAMINATION GENERAL: Not in acute distress, alert and oriented x3. Cooperative on examination. HEENT: Head is normocephalic and atraumatic. Eyes: Pupils are equal and reactive to light bilaterally. Extraocular movements are intact bilaterally. NECK: Supple. Good range of motion. THROAT: No evidence of any erythema or exudates in the posterior pharynx. Has poor dentition. PULMONARY: Clear to auscultation bilaterally. No wheezing. No rales. No rhonchi. No crackles appreciated. CARDIOVASCULAR: Positive S1, S2. No murmurs, rubs, or gallops appreciated. ABDOMEN: Soft, nondistended, nontender to palpation. Bowel sounds are present. MUSCULOSKELETAL: Strength is 5/5 throughout. No evidence of any musculoskeletal deficit on examination. No weakness appreciated. NEUROLOGIC: Cranial nerves II through XII are grossly intact. No evidence of any neurological deficit on exam. SKIN: Intact. Warm to touch. Good cap refill. PSYCHIATRIC: Normal affect and mood. EXTREMITIES: He has trace to 1+ pedal edema of bilateral lower extremities. IMPRESSION 1. Acute exacerbation of congestive heart failure, with systolic and diastolic dysfunction. 2. Chronic kidney disease, stage 5, now going to be end stage and likely multifactorial from likely polycystic kidney disease as well as cardiorenal with longstanding hypertension. 3. Hypertension. 4. Hyperlipidemia. 5. BPH. 6. Medical noncompliance. 7. Anasarca. PLAN: At this time, we will continue with the Lasix drip for now at 10 mg per hour. He is still very short of breath on examination. He will have a tunneled dialysis catheter placement today. I already gave HD orders to the dialysis nurse. Case management knows that we are going to get outpatient hemodialysis arrangement. I discussed this with cardiology. The patient will need a left heart cath prior to being discharged. We will work on an ischemic workup prior to discharge as well. The patient will receive dialysis tomorrow as well. Our goal today is to remove at least 2 liters of fluid with a duration of 2 hours. Will get a.m. labs. Job#: [id number]
--- NOTE | 2018-07-19 10:58 | NUR ---
Dr. Galvan is here making rounds. He said he is going to take patient to laborer car barn. I notified him that patient is going to have a dialysis catheter placed today. He said to keep patient NPO and he will arrange with laborer car [facility]
--- NOTE | 2018-07-19 13:59 | Progress Note ---
DATE: July 19, 2018 CARDIOVASCULAR PROGRESS NOTE SUBJECTIVE: No major events overnight. The patient has been declared end-stage renal disease and will undergo placement of a tunneled catheter today. No chest pain or shortness of breath. OBJECTIVE VITAL SIGNS: Temperature 96.2, pulse 98, respiratory rate 20, blood pressure 118/97, satting 100% on nasal cannula. GENERAL: A well-developed, well-nourished white man in no acute distress. CARDIOVASCULAR: PMI nondisplaced. Regular rate and rhythm. No murmurs, rubs or gallops. Palpable carotid pulses. Palpable radial pulses. LUNGS: Clear to auscultation bilaterally. No crackles. ABDOMEN: Soft, nontender, nondistended. No masses. NEURO AND PSYCH: Alert and oriented to person, place and time. Normal affect. CARDIOVASCULAR MEDICATIONS: Reviewed. LABORATORY DATA: Reviewed. TELEMETRY DATA: Reviewed. Shows atrial flutter with a variable block. ASSESSMENT AND PLAN: 1. Cwfoq-ac-qywcbrl systolic heart failure. 2. Acute kidney injury on chronic kidney disease, now declared end-stage renal disease. 3. Atrial flutter with rapid ventricular response. 4. Hypertension. 5. Hyperlipidemia. 6. History of coronary artery disease, status post coronary artery bypass graft x4 in 2004. RECOMMENDATIONS: Continue diuresis per Nephrology. Patient has been declared end-stage renal. His CHADS-VASc score is 3, which warrants anticoagulation. Will hold for now until his planned procedures are completed. Will plan for ischemic evaluation with a coronary angiogram now that patient has been declared end-stage renal. Will increase Metoprolol to control his heart rate better. Thank you for this consult. Will continue to follow. Job#: [id number] EV
[2018-07-19] MEDS ORDERED: MIDAZOLAM HCL 2 MG/2 ML VIAL ONE (14:32)
[2018-07-19] MEDS ORDERED: HEPARIN SOD (PORCINE) 1000 UNIT/ML 30ML ONE (14:32)
[2018-07-19] MEDS ORDERED: FENTANYL CITRATE/PF 100MCG/2 ML INJ ONE (14:32)
[2018-07-19] MEDS ORDERED: SODIUM CHLORIDE 0.9% 500ML 1,000 ML ONE (14:33)
[2018-07-19] MEDS ORDERED: LIDOCAINE HCL 1% LOCAL INJ 20 ML VIAL ONE (14:33)
--- NOTE | 2018-07-19 15:37 | NUR ---
Patient arrived back to the floor from lab specialist. He is awake alert and oriented x 3. Dressing Line to new right IJ hemodialysis catheter is dry and intact. [facility]
[2018-07-19] MEDS ORDERED: MANNITOL 25% 12.5GM/50 ML VIAL IV PRN (16:45)
[2018-07-19] MEDS ORDERED: HEPARIN SOD (PORCINE) 1000 UNIT/ML SDV IV PRN (16:45)
[2018-07-19] MEDS ORDERED: SODIUM CHLORIDE 0.9% 1000ML 2,000 ML IV PRN (16:45)
[2018-07-19] MEDS: DONEPEZIL HCL 5 MG TAB PO SCH (21:08)
[2018-07-19] MEDS: SIMVASTATIN 40 MG TAB PO SCH (21:08)
[2018-07-20] VITALS (7 sets, daily range): BP systolic 104–137; BP diastolic 74–94
[2018-07-20] MEDS: LEVOTHYROXINE SODIUM 50 MCG TAB PO SCH (05:15)
[2018-07-20] MEDS: LEVALBUTEROL HCL SOLN NEBU 1.25 MG/3 ML NEB INH PRN (07:25)
--- NOTE | 2018-07-20 08:45 | NUR ---
Tele is reporting patient going in and out of atrial flutter 140's -150's. Paged cardiology for orders. Awaiting call back
--- NOTE | 2018-07-20 09:30 | NUR ---
Dialysis nurse is here to start dialysis but is unable to start due to elevated heart rate 141. Paged cardiology again regarding heart rate for orders. Awaiting call back.
[2018-07-20] MEDS: FAMOTIDINE 20 MG/2 ML VIAL IV SCH ×2 (09:39→21:26)
[2018-07-20] MEDS: HEPARIN SOD (PORCINE) 5,000 UNIT/ML VIAL SC SCH ×2 (09:39→21:26)
[2018-07-20] MEDS: METOPROLOL TARTRATE 50 MG TAB PO SCH ×2 (09:39→17:30)
[2018-07-20] MEDS ORDERED: METOPROLOL TARTRATE INJ 1 MG/ML VIAL IV PRN (09:45)
--- NOTE | 2018-07-20 09:45 | NUR ---
Dr. Smith returned call. Notified her of patient being in atrial flutter with fluctuating heart rate into the 140's and 150's and unable to start dialysis. Patient has no complaints however, and states he feels "fine". New orders received.
[2018-07-20] MEDS ORDERED: METOPROLOL TARTRATE 25 MG TAB PO ONE (10:30)
[2018-07-20] MEDS: DOXAZOSIN MESYLATE 2 MG TAB PO SCH (12:30)
[2018-07-20] MEDS ORDERED: DIGOXIN INJ 0.25 MG/ML 2 ML AMP IV ONE ×2 (12:30→13:45)
[2018-07-20] MEDS: SODIUM BICARBONATE 650 MG TAB PO SCH ×2 (13:05→17:30)
[2018-07-20] MEDS: ASPIRIN 81 MG ENTERIC COATED PO SCH (13:05)
[2018-07-20] MEDS: ALLOPURINOL 100 MG TAB PO SCH (13:05)
[2018-07-20] MEDS ORDERED: HEPARIN SOD (PORCINE) 1000 UNIT/ML SDV IV PRN (14:30)
--- NOTE | 2018-07-20 14:38 | Progress Note ---
DATE: July 20, 2018 CARDIOVASCULAR PROGRESS NOTE SUBJECTIVE: Patient had his hemodialysis catheter placement yesterday and initiated dialysis today. OBJECTIVE: VITAL SIGNS: Temperature 97.5, pulse 132, respiratory rate 20, blood pressure 131/94, satting 98% on nasal cannula. GENERAL: A well-developed, well-nourished white man in no acute distress. CARDIOVASCULAR: PMI nondisplaced. Irregular and tachycardic rhythm. No murmurs, rubs or gallops. Palpable carotid pulses. Palpable radial pulses. LUNGS: Clear to auscultation bilaterally. No crackles. ABDOMEN: Soft, nontender, nondistended. No masses. NEURO AND PSYCH: Alert and oriented to person, place and time. Normal affect. CARDIOVASCULAR MEDICATIONS: Reviewed. LABORATORY DATA: Reviewed. TELEMETRY DATA: Reviewed. Shows atrial flutter with RVR and variable AV block. ASSESSMENT AND PLAN: 1. Qduzr-gi-rtjizjg systolic heart failure. 2. Acute kidney injury on chronic kidney disease, now declared end stage renal disease and initiated dialysis. 3. Atrial flutter with rapid ventricular response. 4. Hypertension. 5. Hyperlipidemia. 6. History of coronary artery disease, status post coronary artery bypass graft surgery times 4 in 2004. RECOMMENDATION: Continue diuresis per Nephrology. Patient has been declared end stage renal. Once he is more euvolemic, will plan on doing ischemic evaluation for CHF given his risk factor and prior known CAD. His CHADS-VASc score is at least 3, which warrants anticoagulation. However, given ongoing planned procedures, will hold off until he is closer to discharge, tentatively plan for coronary angiography tomorrow. Will increase metoprolol to control his heart rate better as now he is in RVR likely due to initiation of dialysis. Thank you for this consult. Will continue to follow. Job#: [id number] EV
--- NOTE | 2018-07-20 16:05 | Progress Note ---
DATE: July 20, 2018 INTERNAL MEDICINE PROGRESS NOTE SUBJECTIVE: The patient is doing well today with no other complaints. He is receiving dialysis today. He did have atrial fibrillation with atrial flutter. Heart rate went up and he was given some IV medications. He is undergoing likely a left heart cath tomorrow to evaluate for his underlying heart condition. Currently, he is tolerating dialysis well with no complaints. OBJECTIVE VITAL SIGNS: Temperature 97.5, pulse 80, as high as 141 earlier in the day, blood pressure 141/85, pulse oximetry 98% on room air. GENERAL: In no acute distress, alert and oriented x3, cooperative on examination. HEENT: Head is normocephalic, atraumatic. Eyes: Pupils equal, round and reactive to light bilaterally. Extraocular movements intact bilaterally. Throat with no evidence of erythema or exudates in the posterior pharynx. Has poor dentition. NECK: Supple with good range of motion. PULMONARY: Clear to auscultation bilaterally. No wheezing, rales or rhonchi or crackles appreciated. CARDIOVASCULAR: Positive S1 and S2, no murmurs, rubs or gallops appreciated. ABDOMEN: Soft, nondistended, nontender on palpation. Bowel sounds were present. MUSCULOSKELETAL: Strength 5/5 throughout, no evidence of musculoskeletal deficit on exam. No weakness appreciated. NEUROLOGIC: Cranial nerves II-XII grossly intact. No evidence of neurological deficit on examination. SKIN: Intact. Warm to touch. Good capillary refill. EXTREMITIES: No edema. Good range of motion throughout. PSYCHIATRIC: Normal affect and mood. LABORATORY DATA: White count 13.5, hemoglobin 9.2, hematocrit 27.6, platelets 170,000. Chemistry: Sodium 137, potassium 4.3, chloride 102, bicarb 17, anion gap 22, BUN 87, creatinine 5.6, glucose 102. IMAGING: The patient had a tunneled dialysis catheter. IMPRESSION 1. Acute exacerbation of congestive heart failure with systolic and diastolic dysfunction. 2. Chronic kidney disease stage 5, now end-stage renal disease multifactorial for polycystic kidney disease. 3. Hypertension. 4. Hyperlipidemia. 5. Benign prostatic hypertrophy. 6. Medical noncompliance. 7. Anasarca. 8. Leukocytosis, likely stress induced. 9. Atrial fibrillation, flutter. PLAN: At this time, he is currently receiving hemodialysis with increased ultrafiltration. He did develop atrial fibrillation with rapid ventricular response and atrial flutter, which we are having difficulty removing increased ultrafiltration. Will try to see if we can remove more in order for the patient to have a left heart catheterization tomorrow and able to lay flat during the procedure. His leukocytosis seems to be more reactive because he has no fever and he has no symptoms, but will monitor that very closely and repeat labs in the morning. We are waiting for outpatient hemodialysis chair time via case management. Will get a.m. labs. Continue with same plan of care. The patient will receive dialysis tomorrow. Job#: [id number]
[2018-07-20] MEDS: SIMVASTATIN 40 MG TAB PO SCH (21:26)
[2018-07-20] MEDS: DONEPEZIL HCL 5 MG TAB PO SCH (21:26)
[2018-07-21] VITALS (20 sets, daily range): BP systolic 120–170; BP diastolic 59–90
[2018-07-21] MEDS: METOPROLOL TARTRATE 50 MG TAB PO SCH ×4 (00:23→17:17)
[2018-07-21 05:02] LABS: BASOPHILS % 0.4 % (0.0-1.0); EOSINOPHILS # (AUTO) 0.2 (0.0-0.4); EOSINOPHILS % 2.4 % (0.0-6.0); HEMATOCRIT 29.3 % (38.2-49.6); HEMOGLOBIN 9.9 g/dL (14.0-18.0); LYMPHOCYTES % 19.9 % (18.0-39.1); MEAN CORPUSCULAR HEMOGLOBIN 30.4 pg (28-32); MEAN CORPUSCULAR HGB CONC 33.8 g/dL (31-35); MEAN CORPUSCULAR VOLUME 89.9 fL (81-99); MONOCYTES # (AUTO) 0.9 (0.2-0.8); MONOCYTES % 8.5 % (4.4-11.3); NEUTROPHILS # (AUTO) 6.8 (2.1-6.9); NEUTROPHILS % 68.4 % (38.7-80.0); PLATELET COUNT 168 x10e3/uL (140-360); RED BLOOD COUNT 3.26 x10e6/uL (4.3-5.7); RED CELL DISTRIBUTION WIDTH 13.2 % (11.7-14.4)
[2018-07-21 05:34] LABS: ANION GAP 18.7 mmol/L (8-16); CALCIUM 8.4 mg/dL (8.4-10.2); CREATININE, SERUM 3.44 mg/dL (0.72-1.25); POTASSIUM 3.7 mmol/L (3.5-5.1)
[2018-07-21] MEDS: LEVOTHYROXINE SODIUM 50 MCG TAB PO SCH (05:44)
--- NOTE | 2018-07-21 07:05 | NUR ---
received pt lying in bed with eyes open, TV on, Resp even and unlabored. pt currently receiving hemodialysis with HD nurse at bedside. call light within reach. pt instructed to call for assistance.
--- NOTE | 2018-07-21 08:19 | NUR ---
Nutrition Screen Note RD Recommendation for Physician: Cardiac, Renal Diet Plan of Care: RD sign off Nutrition reason for involvement: MD Consult Primary Diagnose(s): CHF and renal insufficiency Ht: 69 in Wt:220 lb BMI: 32.5 kg/m2 IBW:[address] Assessment: 73YOM admitted for CHF and renal insufficiency. PMH includes gout, hypertension, heart failure with CABG in the past, hyperlipidemia, history of dementia . Chart reviewed, discussed with nursing. Visited pt in room who reporting eating 100% of meals and denied need for offered diet education. Nursing reports intake of 100% and no difficulty chewing or swallowing meals. Pt appears able at this time to meet nutritional needs through po intake. Will sign off, consult as needed. Current Diet: NPO- for procedure Malnutrition Evaluation 07/20: pt denied weight loss or change in appetite prior to admission The patient does not meet criteria for a specified degree of malnutrition at this time. Will re-evaluate at follow-up as appropriate. Diet Education Needs Assessment: Diet education indicated, pt refused Diet Adequacy:Meeting calorie needs, Meeting protein needs Tolerance: Tolerating PO Nutrition Care Level: low Signed: Lina Williamson RD, LD
[2018-07-21] MEDS: DIGOXIN 0.125 MG TAB PO SCH (09:34)
[2018-07-21] MEDS: ALLOPURINOL 100 MG TAB PO SCH (09:34)
[2018-07-21] MEDS: SODIUM BICARBONATE 650 MG TAB PO SCH ×2 (09:34→17:00)
[2018-07-21] MEDS: DOXAZOSIN MESYLATE 2 MG TAB PO SCH (09:34)
[2018-07-21] MEDS: ASPIRIN 81 MG ENTERIC COATED PO SCH (09:34)
[2018-07-21] MEDS: FAMOTIDINE 20 MG/2 ML VIAL IV SCH ×2 (09:34→21:27)
[2018-07-21] MEDS: HEPARIN SOD (PORCINE) 5,000 UNIT/ML VIAL SC SCH ×2 (09:45→21:23)
--- NOTE | 2018-07-21 11:45 | NUR ---
pt off unit and to logging rafter laborer
[2018-07-21] MEDS ORDERED: MIDAZOLAM HCL 2 MG/2 ML VIAL ONE ×3 (12:37→14:45)
[2018-07-21] MEDS ORDERED: LIDOCAINE HCL 1% LOCAL INJ 20 ML VIAL ONE (12:38)
[2018-07-21] MEDS ORDERED: IOPAMIDOL 370 MG/ML 200 ML INFUS..BTL INJ ONE ×4 (12:38→14:49)
[2018-07-21] MEDS ORDERED: HEPARIN SOD/SOD CHLORIDE 2,000 ML ONE (12:38)
[2018-07-21] MEDS ORDERED: FENTANYL CITRATE/PF 100MCG/2 ML INJ ONE ×2 (12:38→14:46)
[2018-07-21] MEDS ORDERED: SODIUM CHLORIDE 0.9% 1000ML 1,000 ML ONE (12:39)
[2018-07-21] MEDS ORDERED: NITROGLYCERIN/D5W 200 MCG/ML 250 ML ONE (13:41)
[2018-07-21] MEDS ORDERED: VERAPAMIL HCL 2.5 MG/ML 2 ML VIAL ONE (13:41)
[2018-07-21] MEDS ORDERED: HEPARIN SOD (PORCINE) 1000 UNIT/ML 30ML ONE (13:41)
[2018-07-21] MEDS ORDERED: ASPIRIN 325 MG TAB ONE (14:13)
[2018-07-21] MEDS ORDERED: CLOPIDOGREL BISULFATE 75 MG TAB ONE (14:13)
[2018-07-21] MEDS ORDERED: ONDANSETRON HCL INJ 2 MG/ML VIAL ONE (14:39)
--- NOTE | 2018-07-21 15:32 | Progress Note ---
DATE: July 21, 2018 INTERNAL MEDICINE PROGRESS NOTE SUBJECTIVE: The patient is doing much better today with no other complaints. He is scheduled for left heart cath later today. OBJECTIVE VITALS: Temperature 98, pulse 62, respiratory rate 20, blood pressure 151/85, 97% on 2 L nasal cannula. LAB FINDINGS: White count 9.9, hemoglobin 9.9, hematocrit 29.3, and platelets 168. Chemistry: Sodium 143, potassium 3.7, chloride 105, bicarb 23, anion gap 18, BUN 59, creatinine 3.44, calcium 8.4. IMAGING STUDIES: None. PHYSICAL EXAMINATION GENERAL: Not in acute distress, alert and oriented x3, cooperative on examination. HEENT: Head is normocephalic, atraumatic. Eyes: Pupils are equal, round and reactive to light bilaterally. Extraocular movements intact bilaterally. NECK: Supple with good range of motion. THROAT: No evidence of erythema or exudates in the posterior pharynx. Has poor dentition. PULMONARY: Clear to auscultation bilaterally. No wheezing, rales, rhonchi or crackles appreciated. CARDIOVASCULAR: Positive S1 and S2. No murmurs, rubs or gallops appreciated. ABDOMEN: Soft, nondistended, nontender on palpation. Bowel sounds were present. MUSCULOSKELETAL: Strength 5/5 throughout. No evidence of musculoskeletal deficit on exam. No weakness appreciated. NEUROLOGIC: Cranial nerves II through XII are grossly intact. No evidence of neurological deficit on examination. SKIN: Intact. Warm to touch. Good capillary refill. EXTREMITIES: No edema. Good range of motion throughout. PSYCHIATRIC: Normal affect and mood. IMPRESSION 1. Acute exacerbation of congestive heart failure with systolic and diastolic dysfunction. 2. Chronic kidney disease stage 5, now end-stage renal disease, multifactorial from polycystic kidney disease. 3. Hypertension. 4. Hyperlipidemia. 5. Benign prostatic hypertrophy. 6. Medical noncompliance. 7. Anasarca. 8. Leukocytosis, likely stress induced. 9. Atrial flutter and fibrillation. PLAN: At this time, he is currently on hemodialysis treatment #2 today, feeling much better. He is scheduled to go for a left heart cath later today. Occasionally, the patient will have AFib and A-flutter and difficulty with any increased time in dialysis. Our goal is to try to remove as much fluid as we can as possible on this patient. Continue same plan of care. Get a.m. labs. Monitor closely. Job#: [id number] JOYCE
--- NOTE | 2018-07-21 15:50 | NUR ---
1550 Received pt from slab puller. Report from Sirisha Wagner.[facility] Dr Galvan Bilateral TR Band approach John Radial pulses adequate.Dressing dry and intact bilateral rt and left. Placed on pillows Pt back to baseline. PEERLA calm and cooperative. Resp shallow and regular on 100% sat Room air. Rt sc permacath intact. rt iv off with 500cc infused NS in case. Abd soft and nontender Denies c/o to defecate Urine cloud omar to bedside drain. ppx4 PT/DT.doppler strong. TR band titration to start at 1750. No distress no c/o. Monitor and vs stable.
--- NOTE | 2018-07-21 15:55 | NUR ---
[facility] CALLED AND STATED THEY ARE NOT IN NETWORK WITH PATIENT, FAXED CLINICALS TO [facility] [phone].
--- NOTE | 2018-07-21 18:00 | NUR ---
1800 TR band titration started 2cc removed left wrist immediate ooz noted.2cc replaced will wait 15min and evaluate. No further bleed noted. 1800 TR BAND titration started 2cc removed right wrist no oozing pulse adequate 1815 Tr band left arm, held deflation removed 2cc from rt Tr band.Family at bedside. pt tolerating meal with son feeding him. 1815 TR Band titration 2cc removed rt wrist no s/s bleeding band stable .Lt tr band remains stable.
--- NOTE | 2018-07-21 18:30 | NUR ---
1830 TRband titration restarted left arm 2cc removed successfully, No oozing no swelling stable. Radial pulses adequate.
--- NOTE | 2018-07-21 19:15 | NUR ---
Left arm titration halted for slight ooze 13cc remain in bladder. Rt arm Titration completed and Tegaderm dressing in place. Cleaned with alcohol sterile 2x2 gauze with Coban in place to right wrist. Adequate pulse. Dr Galvan called regarding left ooze which is not active at this time. Md want to check prior to returning to floor care.
[2018-07-21] MEDS: LEVALBUTEROL HCL SOLN NEBU 1.25 MG/3 ML NEB INH PRN (20:46)
--- NOTE | 2018-07-21 21:00 | NUR ---
2100 Lesley Wagner given final report. Bilateral TR band stable. Dressing Dry and intact. Pulses to radial x2 positive.Left big toe tender family request evaluated for pain and discomfort. (Possible podiatry consult if ok with attending) Pt does'nt want sock on. Daquan Wagner states will followup tomorrow.
--- NOTE | 2018-07-21 21:22 | NUR ---
1900 additional call to MD feel can proceed with tr band to left arm.Rt arm already recieved stasis with tegederm coban dressing w/o oozing. Stasis is achieved and transported by bed back to 213. Zoll monitoring in place and tele report to monitor room as well as bedside tele applied by bedside nurse.Sinus josias no ectopics, Report to Geneva WAGNER aware pt had 900cc in barber cloudy omar urine and 700cc infused NS in iv by solder making laborer. Iv stopped on arrival to solder making laborer recovery.Bilateral tr bands are stable with dressing and adequate radial pulses. Bilateral saline locks to arm intact w/o s/s infiltration. Pt back to baseline orientation. Family is home Ate 100% diet tray with 400cc po intake. Rt Permacath remains intact and was not used in procedure. Barber emptied prior to transport back to floor care. On arrival 2nd report given to Geneva Wagner Vs stable Sats 100% on room air. Abd soft and denies necessity to defecate. Bilateral femoral PPx 4 intact. Pt has left sore big toe and note on chart for Md to review potential foot consult.
[2018-07-21] MEDS: SIMVASTATIN 40 MG TAB PO SCH (21:27)
[2018-07-21] MEDS: DONEPEZIL HCL 5 MG TAB PO SCH (21:27)
[2018-07-22] VITALS (8 sets, daily range): BP systolic 120–165; BP diastolic 65–79
[2018-07-22] MEDS: METOPROLOL TARTRATE 50 MG TAB PO SCH ×5 (00:49→20:53)
[2018-07-22] MEDS: LEVOTHYROXINE SODIUM 50 MCG TAB PO SCH (05:57)
--- NOTE | 2018-07-22 07:01 | NUR ---
received pt lying in bed with eyes closed, Resp even and unlabored. call light within reach.
[2018-07-22] MEDS: ASPIRIN 81 MG ENTERIC COATED PO SCH (08:56)
[2018-07-22] MEDS: FAMOTIDINE 20 MG/2 ML VIAL IV SCH ×2 (08:56→20:53)
[2018-07-22] MEDS: SODIUM BICARBONATE 650 MG TAB PO SCH ×2 (08:57→17:11)
[2018-07-22] MEDS: ALLOPURINOL 100 MG TAB PO SCH (08:57)
[2018-07-22] MEDS: DOXAZOSIN MESYLATE 2 MG TAB PO SCH (08:57)
[2018-07-22] MEDS: DIGOXIN 0.125 MG TAB PO SCH (08:58)
[2018-07-22] MEDS: HEPARIN SOD (PORCINE) 5,000 UNIT/ML VIAL SC SCH ×2 (09:00→21:25)
--- NOTE | 2018-07-22 19:21 | Progress Note ---
DATE: July 22, 2018 INTERNAL MEDICINE PROGRESS NOTE SUBJECTIVE: Patient is doing well today with no complaints. He received hemodialysis #3 yesterday. OBJECTIVE VITAL SIGNS: Temperature 98, pulse 61, respiratory rate is 20, blood pressure 165/79. LAB FINDINGS: Show a white count is 9.9, hemoglobin 9.9, hematocrit 29.3, platelets of 168. Chemistries; sodium 140, potassium 3.7, chloride 105, bicarb 23, anion gap of 18, BUN 59, creatinine is 3.44, and calcium is 8.4. Urinalysis negative. MICROBIOLOGY: None. IMAGING STUDIES: None. PHYSICAL EXAMINATION GENERAL: Not in acute distress, alert and oriented x3, cooperative on examination. HEENT: Head is normocephalic, atraumatic. Eyes: Pupils are equal, round, and reactive to light bilaterally. Extraocular movements intact bilaterally. Throat, no evidence of erythema or exudates in the posterior pharynx. Has poor dentition. NECK: Supple with good range of motion. PULMONARY: Clear to auscultation bilaterally. No wheezing, no rales, no rhonchi, no crackles appreciated. CARDIOVASCULAR: Positive S1 and S2. No murmurs, rubs, or gallops appreciated. ABDOMEN: Soft, nondistended, nontender on palpation. Bowel sounds were present. MUSCULOSKELETAL: Strength 5/5 throughout. No evidence of any musculoskeletal deficit on exam. No weakness appreciated. NEUROLOGIC: Cranial nerves II through XII are grossly intact. No evidence of neurological deficit on examination. SKIN: Intact. Warm to touch. Good capillary refill. PSYCHIATRIC: Normal affect and mood. EXTREMITIES: No edema. Good range of motion throughout. IMPRESSION 1. Acute exacerbation of congestive heart failure with systolic and diastolic dysfunction, status post left heart cath with percutaneous coronary intervention and stent placement. 2. Chronic kidney disease, stage 5, now end-stage renal disease due to polycystic kidney disease. 3. Hypertension. 4. Hyperlipidemia. 5. Benign prostatic hypertrophy. 6. Medical noncompliance. 7. Anasarca. 8. Leukocytosis, likely stress induced. 9. Atrial flutter and fibrillation. PLAN: At this time, he had received hemodialysis #2 yesterday. His electrolytes are stable now. We will do HD on Tuesday. His electrolytes are stable. He did have a left heart cath with PCI. It seems that he had a mid LAD stent placed, but I cannot find the report. He had AFib, which is recommended per cardiology as plan of care. Otherwise, we will wait for outpatient hemodialysis schedule. Job#: [id number] LPA
[2018-07-22] MEDS: SIMVASTATIN 40 MG TAB PO SCH (20:53)
[2018-07-22] MEDS: DONEPEZIL HCL 5 MG TAB PO SCH (20:53)
--- NOTE | 2018-07-22 21:32 | Progress Note ---
DATE: July 21, 2018 CARDIOLOGY PROGRESS NOTE SUBJECTIVE: Had coronary angiography and PCI to the BONILLA to LAD graft and the platinum LAD performed by me earlier today. Doing well. No chest pain or shortness of breath. OBJECTIVE VITAL SIGNS: Temperature 98.3, pulse 61, respiratory rate 20, blood pressure 142/75, and satting 95% on 2 liters nasal cannula. GENERAL: Well-developed, well-nourished white man in no acute distress. CARDIOVASCULAR: PMI is nondisplaced. Regular rate and rhythm. No murmurs, rubs or gallops. Palpable carotid pulses. Palpable radial pulses with post cath bandages in place. LUNGS: Clear to auscultation bilaterally. Bibasilar crackles. ABDOMEN: Soft, nontender, and nondistended. No masses. NEURO AND PSYCH: Alert and oriented to person, place, and time. Normal affect. CARDIOVASCULAR MEDICATIONS: Reviewed. LABORATORY DATA: Reviewed. TELEMETRY DATA: Reviewed. Now converted to normal sinus rhythm. ASSESSMENT AND PLAN 1. Xitmy-xy-apwwtko systolic heart failure. 2. Acute kidney injury on chronic kidney disease, now declared end-stage renal disease and initiated dialysis. 3. Atrial flutter with rapid ventricular response. 4. Hypertension. 5. Hyperlipidemia. 6. History of coronary artery disease, status post coronary artery bypass graft surgery in 2004. RECOMMENDATIONS: Continue diuresis per nephrology. Patient has been declared end-stage renal. Had a coronary angiography with PCI of the LAD through the BONILLA graft performed by me earlier today. Continue aspirin and Plavix for now. CHADS-VASc score is 3 which warrants anticoagulation. However, triple therapy would be a very high risk for bleeding. We will plan for using apixaban and Plavix and we will stop his aspirin prior to discharge. He is now rate controlled and converted back to normal sinus rhythm. Thank you for this consult. We will continue to follow. Job#: [id number] VAS
[2018-07-23] VITALS (8 sets, daily range): BP systolic 122–184; BP diastolic 58–82
[2018-07-23 04:43] LABS: BASOPHILS # (AUTO) 0.1 (0.0-0.1); BASOPHILS % 0.6 % (0.0-1.0); EOSINOPHILS # (AUTO) 0.4 (0.0-0.4); EOSINOPHILS % 3.9 % (0.0-6.0); HEMATOCRIT 29.8 % (38.2-49.6); LYMPHOCYTES # (AUTO) 1.3 (1.0-3.2); LYMPHOCYTES % 14.5 % (18.0-39.1); MEAN CORPUSCULAR HEMOGLOBIN 30.3 pg (28-32); MEAN CORPUSCULAR HGB CONC 33.6 g/dL (31-35); MEAN CORPUSCULAR VOLUME 90.3 fL (81-99); MONOCYTES # (AUTO) 0.8 (0.2-0.8); MONOCYTES % 8.6 % (4.4-11.3); NEUTROPHILS # (AUTO) 6.4 (2.1-6.9); NEUTROPHILS % 71.8 % (38.7-80.0); PLATELET COUNT 169 x10e3/uL (140-360); RED CELL DISTRIBUTION WIDTH 13.3 % (11.7-14.4)
[2018-07-23 04:59] LABS: ANION GAP 19.2 mmol/L (8-16); CREATININE, SERUM 4.64 mg/dL (0.72-1.25); POTASSIUM 4.2 mmol/L (3.5-5.1)
[2018-07-23] MEDS: LEVOTHYROXINE SODIUM 50 MCG TAB PO SCH (05:47)
[2018-07-23] MEDS: METOPROLOL TARTRATE 50 MG TAB PO SCH ×2 (08:32→20:16)
[2018-07-23] MEDS: DIGOXIN 0.125 MG TAB PO SCH (08:32)
[2018-07-23] MEDS: ASPIRIN 81 MG ENTERIC COATED PO SCH (08:32)
[2018-07-23] MEDS: SODIUM BICARBONATE 650 MG TAB PO SCH ×2 (08:32→16:46)
[2018-07-23] MEDS: ALLOPURINOL 100 MG TAB PO SCH (08:32)
[2018-07-23] MEDS: DOXAZOSIN MESYLATE 2 MG TAB PO SCH (08:32)
[2018-07-23] MEDS: CLOPIDOGREL BISULFATE 75 MG TAB PO SCH (08:32)
[2018-07-23] MEDS: FAMOTIDINE 20 MG/2 ML VIAL IV SCH ×2 (08:32→20:28)
[2018-07-23] MEDS: HEPARIN SOD (PORCINE) 5,000 UNIT/ML VIAL SC SCH ×2 (08:33→20:39)
--- NOTE | 2018-07-23 16:30 | Progress Note ---
DATE: July 23, 2018 CARDIOLOGY PROGRESS NOTE SUBJECTIVE: No major events overnight. OBJECTIVE VITAL SIGNS: Temperature 98.8, pulse 52, respiratory rate 20, blood pressure 122/58, satting 97% on room air. GENERAL: Well-developed, well-nourished white man, in no acute distress. CARDIOVASCULAR: PMI is nondisplaced. Regular rate and rhythm. No murmurs, rubs, or gallops. Palpable carotid pulses. Palpable radial pulses. LUNGS: Clear to auscultation bilaterally. Mild crackles at the bases. ABDOMEN: Soft, nontender, nondistended. No masses. NEURO AND PSYCH: Alert and oriented to person, place, and time. Normal affect. CARDIOVASCULAR MEDICATIONS: Reviewed. LABORATORY DATA: Reviewed. TELEMETRY DATA: Reviewed. ASSESSMENT AND PLAN 1. Eaviw-do-vqivafy systolic heart failure. 2. Acute kidney injury on chronic kidney disease, now declared end-stage renal disease, on hemodialysis. 3. Atrial flutter with rapid ventricular response, now in sinus rhythm. 4. Hypertension. 5. Hyperlipidemia. 6. History of coronary artery disease, status post coronary artery bypass graft surgery. RECOMMENDATIONS: Continue dialysis per nephrology. Status post PCI to the LAD through BONILLA graft this admission. Continue aspirin and Plavix for now. We will plan to stop the aspirin and start apixaban 2.5 mg twice a day for his atrial flutter. Rate is now well controlled. We will titrate metoprolol down slightly for bradycardia. Thank you for this consult. We will continue to follow. Job#: [id number] KARRI
--- NOTE | 2018-07-23 17:02 | Progress Note ---
DATE: July 23, 2018 MEDICINE PROGRESS NOTE SUBJECTIVE: Patient is doing well today with no complaints. He is doing well, has good urine output. We are going to discontinue the Reinoso catheter. OBJECTIVE VITAL SIGNS: Temperature is 98.8, pulse 52, respiratory rate is 20, blood pressure 122/58, pulse ox 97% on room air. LAB FINDINGS: Show white count is 8.8, hemoglobin 10, hematocrit is 29.3, platelets of 169. Chemistries: Sodium 140, potassium 4.2, chloride 103, bicarb 22, anion gap of 19, BUN is 48, creatinine is 4.6, glucose is 79, calcium is 9. IMAGING STUDIES: None. PHYSICAL EXAMINATION GENERAL: Not in acute distress, alert and oriented x3, cooperative on examination. HEENT: Head normocephalic, atraumatic. Eyes: Pupils equal, round and reactive to light bilaterally. Extraocular movements intact bilaterally. Throat: No evidence of erythema or exudates in the posterior pharynx, has poor dentition. NECK: Supple with good range of motion. PULMONARY: Clear to auscultation bilaterally. No wheezing, no rales, no rhonchi, no crackles appreciated. CARDIOVASCULAR: Positive S1 and S2. No murmurs, rubs, or gallops appreciated. ABDOMEN: Soft, nondistended, nontender to palpation. Bowel sounds present. MUSCULOSKELETAL: Strength is 5/5 throughout. No evidence of any musculoskeletal deficit on examination. No weakness appreciated. NEUROLOGIC: Cranial nerves II through XII grossly intact. No evidence of neurological deficit on exam. SKIN: Intact. Warm to touch. Good capillary refill. PSYCHIATRIC: Normal affect and mood. EXTREMITIES: No edema. Good range of motion throughout. IMPRESSION 1. Acute exacerbation of congestive heart failure with systolic and diastolic dysfunction, status post left heart catheterization with percutaneous coronary intervention of the left anterior descending through the left internal mammary artery graft performed by cardiology. 2. End-stage renal disease, on hemodialysis secondary to polycystic kidney disease. 3. Hypertension. 4. Hyperlipidemia. 5. Benign prostatic hypertrophy. 6. Anasarca. 7. Leukocytosis, improved. 8. Atrial flutter and fibrillation with CHADSVASc score of 3, which warrants anticoagulation. PLAN: At this time, per cardiology, the patient will continue with Eliquis and Plavix while here and stop aspirin upon discharge. His rate is well controlled. No further workup needed by cardiology. The patient will receive dialysis tomorrow. We will get a.m. labs. Once he has an HD chair and HD unit, he will be discharged. He is stable for discharge to home. Job#: [id number] BO
[2018-07-23] MEDS: SIMVASTATIN 40 MG TAB PO SCH (20:28)
[2018-07-23] MEDS: DONEPEZIL HCL 5 MG TAB PO SCH (20:28)
[2018-07-24] VITALS (7 sets, daily range): BP systolic 117–163; BP diastolic 63–81
--- NOTE | 2018-07-24 01:54 | NUR ---
Patient void after barber removal.
[2018-07-24 05:26] LABS: BASOPHILS % 0.4 % (0.0-1.0); EOSINOPHILS # (AUTO) 0.5 (0.0-0.4); EOSINOPHILS % 5.1 % (0.0-6.0); HEMATOCRIT 28.8 % (38.2-49.6); HEMOGLOBIN 9.8 g/dL (14.0-18.0); LYMPHOCYTES # (AUTO) 1.9 (1.0-3.2); LYMPHOCYTES % 17.5 % (18.0-39.1); MEAN CORPUSCULAR HEMOGLOBIN 30.2 pg (28-32); MEAN CORPUSCULAR VOLUME 88.9 fL (81-99); NEUTROPHILS # (AUTO) 7.2 (2.1-6.9); NEUTROPHILS % 67.4 % (38.7-80.0); PLATELET COUNT 176 x10e3/uL (140-360); RED BLOOD COUNT 3.24 x10e6/uL (4.3-5.7); RED CELL DISTRIBUTION WIDTH 13.2 % (11.7-14.4)
[2018-07-24] MEDS: LEVOTHYROXINE SODIUM 50 MCG TAB PO SCH (05:26)
[2018-07-24 05:50] LABS: CALCIUM 8.7 mg/dL (8.4-10.2); CREATININE, SERUM 5.6 mg/dL (0.72-1.25)
--- NOTE | 2018-07-24 07:47 | NUR ---
RECEIVED VOICEMAIL WITH TENATIVE CHAIR AT [facility] M, W AND [place] AT 1PM FROM [facility] AT [phone]. WILL CALL TO VERIFY AND GET LETTER FOR ADMIT TO GIVE TO PATIENT AND LET CM KNOW.
--- NOTE | 2018-07-24 08:21 | NUR ---
Confirmed with Dr. Nuñez that patient will received dialysis today. Notified Monique that patient will need dialysis today.
--- NOTE | 2018-07-24 08:35 | NUR ---
SPOKE WITH UMM AT [facility] ADMISSION SHE STATES SHE NEEDS CXR AND PRELABS FAXED TO [phone] SHE ALSO STATES THAT THE CHAIR TIME IS AT 4PM. FAXED INFORMATION REQUESTED AND WAITING FOR LETTER TO BE SENT FOR ACCEPTANCE.
--- NOTE | 2018-07-24 08:41 | Diagnostic Imaging Report ---
Date and Time: Procedure: Right internal jugular tunneled hemodialysis catheter placement floater operator: Dr. Ndiaye Pre-operative diagnosis: ESRD Post-operative diagnosis: ESRD Conscious Sedation: Versed 1 mg and Fentanyl 50 mcg. The patient's heart rate and pulse oximetry were continuously monitored by the interventional radiology nurse. Blood pressure was monitored at 5 minute intervals. Total intraservice time for sedation: 25 minutes Additional Medications: Lidocaine 1% for local anesthesia Fluoroscopy time: 1.0 minutes Dose-area Product: 467.2 cGycm2. Contrast used: 0 Estimated blood loss: Less than 10 cc Blood products administered: None Specimens: None Implants: 16 Mauritanian, 23 cm tip-cuff tunneled hemodialysis catheter DISCUSSION: Informed consent was obtained and documented in the medical record after discussion of risks and benefits. The patient was placed in the supine position on the angiographic table. Preliminary sonographic evaluation confirmed patency of the right internal jugular vein, evidenced by compressibility. The right neck and upper chest was then prepped and draped in the standard sterile fashion. 1% lidocaine was then infiltrated into the skin and subcutaneous tissues. Then under continuous sonographic guidance a 21-gauge micropuncture needle was used to access the right internal jugular vein. A 0.0 1 8-in. wire was advanced centrally under fluoroscopic guidance. The needle was exchanged for a 5 Mauritanian micropuncture sheath and the wire upsized to a 0.0 3 5-in. Amplatz wire, which was advanced into the inferior vena cava under fluoroscopic guidance. Attention was then turned to creation of a subcutaneous tunnel on the right upper chest. A suitable catheter exit site was identified approximately 3 fingerbreadths inferior to the clavicle. 1% lidocaine was used to infiltrate the skin and subcutaneous tissues from the planned catheter exit site on the right upper chest to the venotomy at the right lower neck. A small stab incision was made. The catheter was then tunneled from the exit site to the venotomy at the right lower neck, advancing the retention cuff well into the subcutaneous tunnel. The micropuncture sheath was then removed over the wire and the tract was serially dilated. Then a 16.5 Mauritanian peel-away sheath was advanced over the wire under fluoroscopic guidance. The wire and dilator of the sheath were removed. The catheter was then advanced through the sheath, which was broken and discarded. The catheter tip was positioned in the mid right atrium. Each lumen was tested and showed adequate bidirectional flow. Each lumen was then packed with 2500 units of heparin. The catheter was secured to the skin with monofilament nylon suture. The venotomy at the right lower neck was closed with tissue disease of. Sterile dressings were applied. The patient tolerated the procedure well without immediate complication. FINDINGS: Patent right internal jugular vein. IMPRESSION: Successful placement of a 16 Mauritanian, 23 cm tip-cuff tunneled hemodialysis catheter by a right internal jugular approach. Signed by: Dr. Fausto Ndiaye M.D. on 07/19/2018 3:43 PM
[2018-07-24] MEDS: FAMOTIDINE 20 MG/2 ML VIAL IV SCH ×2 (09:43→21:54)
[2018-07-24] MEDS: ASPIRIN 81 MG ENTERIC COATED PO SCH (09:43)
[2018-07-24] MEDS: DOXAZOSIN MESYLATE 2 MG TAB PO SCH (09:44)
[2018-07-24] MEDS: DIGOXIN 0.125 MG TAB PO SCH (09:44)
[2018-07-24] MEDS: SODIUM BICARBONATE 650 MG TAB PO SCH ×2 (09:45→16:58)
[2018-07-24] MEDS: METOPROLOL TARTRATE 50 MG TAB PO SCH ×2 (09:45→21:54)
[2018-07-24] MEDS: CLOPIDOGREL BISULFATE 75 MG TAB PO SCH (09:45)
[2018-07-24] MEDS: ALLOPURINOL 100 MG TAB PO SCH (09:45)
--- NOTE | 2018-07-24 10:37 | NUR ---
SPOKE WITH GABRIELLE BRICE [facility] WHOM STATES NEEDS DIALYSIS RUN SHEETS FAXED. FAXED. SPOKE WIH HIM TO LET KNOW THAT PATIENT IS READY FOR DISCHARGE AND WAITING ON LETTER.
[2018-07-24] MEDS: LEVALBUTEROL HCL SOLN NEBU 1.25 MG/3 ML NEB INH PRN (11:16)
--- NOTE | 2018-07-24 15:01 | Progress Note ---
DATE: July 24, 2018 CARDIOLOGY PROGRESS NOTE SUBJECTIVE: Patient undergoing hemodialysis currently. No chest pain or shortness of breath. No other events. OBJECTIVE VITAL SIGNS: Temperature is 98.1, heart rate is 51, respirations are 19, blood pressure is 162/72, oxygen saturation is 100% on 2 liters nasal cannula. GENERALLY: He is a well-appearing elderly man lying comfortably in bed. HEAD: Normocephalic, atraumatic. EYES: The extraocular muscles are intact. Conjunctiva is clear. NECK: No JVD. No bruits. CARDIOVASCULAR: Regular rate and rhythm. No murmurs, rubs or gallops. Palpable pulses. SKIN: Warm, dry, intact. LUNGS: Clear to auscultation with mildly decreased breath sounds at the bases. ABDOMEN: Soft, nontender. NEUROLOGIC: No focal deficits noted. Alert and oriented. All medications, laboratory data and telemetry monitoring were reviewed. ASSESSMENT 1. Nwneh-dk-swleqrj systolic congestive heart failure. Appears euvolemic at this point in time. 2. End-stage renal disease. 3. Atrial flutter with rapid ventricular response, now in normal sinus rhythm. 4. Hypertension. 5. Hyperlipidemia. 6. Coronary artery disease, status post aortocoronary bypass and percutaneous coronary intervention with PCI of the left anterior descending during this admission. RECOMMENDATIONS: Continue volume management per Nephrology. He is now status post percutaneous coronary intervention during this admission. Will continue aspirin and Plavix for now. At the time of discharge, reinitiate Eliquis 2.5 mg b.i.d. and Plavix. Patient's heart rate is on the low side; so, it seems reasonable to discontinue his digoxin. Will continue all other current cardiovascular medications. Job#: [id number] EV
--- NOTE | 2018-07-24 15:12 | NUR ---
CALLED [facility] AND SPOKE WITH ALE ON THE ADMISSIONS LINE SHE GAVE CONFIRMED CHAIR TIME OF M, W AND TUESDAY AT 4PM, TO BE THERE WED AT 330 WILL EMAIL LETTER TO BE ABLE OT CHIEF OF INTERNAL MEDICINE TO PATIENT.
--- NOTE | 2018-07-24 15:35 | NUR ---
IMM letter delivered and explained to pt. He verbalized understanding. Signed copy placed in chart. Copy given to pt.
--- NOTE | 2018-07-24 16:42 | Progress Note ---
DATE: July 24, 2018 NEPHROLOGY PROGRESS NOTE SUBJECTIVE: The patient is doing well today with no complaints. He had dialysis today. OBJECTIVE VITAL SIGNS: Temperature is 97.7, pulse 54, respiratory rate is 18, blood pressure 117/63, pulse ox 98% on nasal cannula. LAB FINDINGS: Show white count 10.3, hemoglobin 9.8, hematocrit is 28.8, platelets of 136. COAGULATION: Normal. CHEMISTRY: Sodium 140, potassium 4, chloride 102, bicarb 22, anion gap of 20, BUN is 55 and creatinine is 5.6. Urinalysis, none. MICROBIOLOGY: None. IMAGING STUDIES: None. PHYSICAL EXAMINATION GENERAL: Not in acute distress. Alert, oriented x3, cooperative on examination. HEENT: Head: Normocephalic, atraumatic. Eyes: Pupils equally round and reactive to light bilaterally. Extraocular movements intact bilaterally. Neck was supple with good range of motion. Throat: No evidence of any erythema or exudates in the posterior pharynx. Has poor dentition. PULMONARY: Clear to auscultation bilaterally. No wheezing, no rales, no rhonchi, no crackles appreciated. CARDIOVASCULAR: Positive S1/S2. No murmurs, rubs or gallops appreciated. ABDOMEN: Soft, nondistended, nontender to palpation. Bowel sounds present. MUSCULOSKELETAL: Strength is 5/5 throughout. No evidence of any musculoskeletal deficit on examination. No weakness appreciated. NEUROLOGICAL: Cranial nerves 2-12 grossly intact. No evidence of any neurological deficit on exam. SKIN: Intact. Warm to touch. Good capillary refill. PSYCHIATRIC: Normal affect and mood. EXTREMITIES: No edema. Good range of motion throughout. IMPRESSION 1. Acute exacerbation of congestive heart failure with systolic and diastolic dysfunction, status post left heart catheterization with percutaneous coronary intervention in the left anterior descending through the left internal mammary artery graft performed by Cardiology. 2. End-stage renal disease, on hemodialysis secondary to polycystic kidney disease. 3. Hypertension. 4. Hyperlipidemia. 5. Benign prostatic hypertrophy. 6. Anasarca. 7. Leukocytosis. 8. Atrial flutter and atrial fibrillation with CHADS-VASc score of 3, which warrants anticoagulation. PLAN: At this time, per Cardiology the patient will continue with Eliquis and Plavix while here and stop aspirin upon discharge. His rate is well controlled. No further workup needed by Cardiology. Will arrange for hemodialysis chair. He did receive dialysis today. Patient was evaluated during dialysis. Job#: [id number] EV
--- NOTE | 2018-07-24 17:30 | NUR ---
Dialysis letter with chair time given to pt. Carina Parker [address] [place] [address] - phone [phone] - fax 1st treatment 07/26/18 at 3:30PM Copy to pt. Copy placed in chart.
--- NOTE | 2018-07-24 21:35 | NUR ---
PATIENT RECEIVED. PATIENT IS RESTING IN BED. RESP EVEN AND UNLABORED. NO ACUTE DISTRESS NOTED. PATIENT DENIED OF ANY PAIN OR DISCOMFORT AT THIS TIME. CALL LIGHT WITHIN REACH. INSTRUCT TO CALL FOR ASSISTANCE. BED LOW/LOCKED. CONTINUE TO MONITOR CLOSELY
[2018-07-24] MEDS: SIMVASTATIN 40 MG TAB PO SCH (21:54)
[2018-07-24] MEDS: DONEPEZIL HCL 5 MG TAB PO SCH (21:54)
[2018-07-25] VITALS: BP 150/75
[2018-07-25 04:00] VITALS: BP 162/73
[2018-07-25] MEDS: LEVOTHYROXINE SODIUM 50 MCG TAB PO SCH (05:25)
[2018-07-25 08:22] VITALS: BP 162/74
[2018-07-25 09:00] VITALS: BP 162/74
[2018-07-25] MEDS ORDERED: APIXAB 2.5 MG TABLET PO SCH (09:00)
[2018-07-25] MEDS: FAMOTIDINE 20 MG/2 ML VIAL IV SCH (09:18)
[2018-07-25] MEDS: METOPROLOL TARTRATE 50 MG TAB PO SCH (09:19)
[2018-07-25] MEDS: ALLOPURINOL 100 MG TAB PO SCH (09:19)
[2018-07-25] MEDS: CLOPIDOGREL BISULFATE 75 MG TAB PO SCH (09:19)
[2018-07-25] MEDS: SODIUM BICARBONATE 650 MG TAB PO SCH (09:19)
[2018-07-25] MEDS: DOXAZOSIN MESYLATE 2 MG TAB PO SCH (09:19)
--- NOTE | 2018-07-25 09:32 | NUR ---
Gave pt [employer] card for assistance with copay. Explained to pt he needs to go on the website and fill out the application. Pt stated his son can help him with it. CM reminded pt about his dialysis chair tomorrow. Pt stated that his son or [id number] will be able to take him tomorrow. Pt has chair time letter at bedside.
[2018-07-25 11:54] VITALS: BP 168/77
--- NOTE | 2018-07-25 12:00 | NUR ---
Discharge instructions and prescriptions were given to the patient's son, who lives with the patient. He verbalized understanding of hemodialysis appointments. IV to the left AC was removed with tip intact. Patient's son says that patient already has PT and home health setup. Notified case management and they sent order to resume.
--- NOTE | 2018-07-25 12:35 | NUR ---
Patient left the floor via wheelchair, he is discharged home.
--- NOTE | 2018-07-25 12:36 | NUR ---
Pt's son informed CARMEL pt has home health with [facility]. Choice letter signed for [facility]. Copy to pt. CARMEL called and spoke with Antonella who verified pt is on service with them. Carmel notified her that pt is discharging from hospital today. Clinical and resumption orders faxed to [phone] / P [phone]. CARMEL spoke with pt's son at bedside and reminded him of dialysis for tomorrow. Gave him the copy of chair time.
--- NOTE | 2018-07-25 12:55 | Discharge Summary ---
FINAL DISCHARGE DIAGNOSES 1. Acute exacerbation of congestive heart failure with systolic and diastolic dysfunction. 2. Status post left heart catheterization with percutaneous coronary intervention in the left anterior descending and left internal mammary artery graft with stent placement. 3. End-stage renal disease on hemodialysis due to polycystic kidney disease with worsening renal function. 4. Hypertension. 5. Hyperlipidemia. 6. Benign prostatic hypertrophy. 7. Anasarca. 8. Leukocytosis. 9. Atrial fibrillation and will be discharged on rate-control medications and Eliquis. CONSULTANTS: Cardiology. VITAL SIGNS: Temperature was 97.6, pulse 58, respiratory rate is 16, blood pressure was 162/74, and his pulse ox was 98% on room air. LAB FINDINGS: Show white count 10.6, hemoglobin 9.8, hematocrit is 28.8, platelets of 176. COAGULATION: PT 14, INR 1, PTT 42. CHEMISTRY: Sodium 140, potassium 4, chloride 102, bicarb 22, BUN is 55 and his anion gap was 20. His estimated GFR was 10. Calcium was 8.7. Albumin was 3.3. LDL level was 108, and his troponins were all negative. Urinalysis negative. Serology negative. IMAGING STUDIES: Chest x-ray: Still some pulmonary edema. Renal ultrasound shows left kidney to be 20.6 cm in size and the right kidney measuring 24 cm in size with multi-polycystic kidney disease. HOSPITAL COURSE: This is a 73-year-old male who came into the ED with complaints of shortness of breath ongoing for several days prior to arrival to the ED. Patient has significant anasarca on examination. Cardiology was consulted. Patient was treated for another acute exacerbation of CHF with systolic and diastolic dysfunction, and he was on IV diuretics. In further review, patient had underlying CKD stage 5 and his renal ultrasound was consistent with polycystic kidney disease with enlarged kidneys with multiple cysts. Patient had a renal creatinine level of 3.5 back in the PCP's office in November of 2017. Since then patient's renal function continued to deteriorate. At this time patient was placed on dialysis in which he had a tunneled catheter placed here in the hospital. He had several treatments of dialysis with improved respiratory status with ultrafiltration and dialysis treatment. Patient did well with no complaints. He is scheduled to follow up as an outpatient at [facility] on third shift Tuesday/Tuesday/Tuesday. Patient otherwise well prior to discharge home. Patient underwent a left heart cath with PCI performed, left anterior descending as well as left internal mammary artery graft with stent placement. Per Cardiology, the patient can be discharged on oral Eliquis and Plavix. He did develop AFib while here in the hospital, which warranted the Eliquis per Cardiology's note. His rate is well controlled while here in the hospital. We will discontinue the aspirin as per Cardiology recommendations. On the day of discharge, vital signs stable, labs reviewed and stable. Patient seen and evaluated and examined thoroughly on the day of discharge with no other complaints. Patient verbalized understanding and agreed with the plan of care to follow up accordingly as an outpatient with the primary care physician in 1 week, home care manager in 2 weeks' time. MEDICATIONS: See med reconciliation form. DISPOSITION: To home. CONDITION: Stable. DIET: Renal. In the event of any worsening symptoms, the patient advised to come back to the ED for further evaluation. Discharge summary took greater than 35 minutes. BON COMBS MD Job#: [id number] EV
--- NOTE | 2018-07-25 18:37 | Progress Note ---
DATE: July 25, 2018 CARDIOLOGY PROGRESS NOTE SUBJECTIVE: The patient denies chest pain or shortness of breath. OBJECTIVE VITAL SIGNS: Temperature 97.9 degrees, pulse 56, respiratory rate 16, blood pressure 168/77, oxygen saturation 98% on room air. GENERAL: An elderly man in no acute distress, awake and alert. LUNGS: Clear to auscultation bilaterally. No wheezes or crackles. CARDIOVASCULAR: Normal rate, regular rhythm. No murmur. Normal S1 and S2. ABDOMEN: Soft, nontender. EXTREMITIES: No edema. CARDIAC MEDICATIONS: 1. Apixaban 2.5 mg p.o. daily. 2. Plavix 75 mg p.o. daily. 3. Metoprolol tartrate 100 mg p.o. q.12 h. 4. Levothyroxine 50 mcg p.o. daily. 5. Simvastatin 40 mg p.o. nightly. 6. Aspirin 81 mg p.o. daily. 7. Metoprolol tartrate 5 mg IV q.6 h. p.r.n. LABS: None today. TELEMETRY: Normal sinus rhythm. IMPRESSION: 1. Uqmyo-pu-doevzwm systolic heart failure. 2. End-stage renal disease in hemodialysis. 3. Atrial flutter with rapid ventricular response, normal sinus rhythm. 4. Hypertension. 5. Hyperlipidemia. 6. Coronary artery disease, status post coronary artery bypass graft and PCI of the left anterior descending during this admission. RECOMMENDATIONS: Volume management per nephrology. Continue aspirin and Plavix while admitted. Discharge on Plavix and Eliquis. Continue current cardiac medications, otherwise. Please have the patient follow up in the office in 2 weeks. Thank you for this consult. Will continue to follow. Job#: [id number]
--- NOTE | 2018-10-18 14:53 | Operative Report ---
DATE OF PROCEDURE: July 16, 2018 INDICATIONS FOR PROCEDURE: [id number]. PREPROCEDURE ASSESSMENT: The patient's medical history, social history, previous experience with anesthesia were reviewed prior to the procedure, and the patient was deemed to be an appropriate candidate for moderate sedation. The risks, the benefits and alternatives of the treatment were explained to the patient prior to the procedure, and informed consent was obtained and documented in the medical record. MEDICATIONS: Please see nursing notes for medications administered during the procedure. PROCEDURES PERFORMED 1. Coronary angiography. 2. Bypass graft angiography. 3. Percutaneous coronary intervention to the left internal mammary artery to left anterior descending anastomosis with drug-eluting stent x1. 4. Left heart catheterization. PROCEDURE DETAILS: The patient was brought to the cardiac catheterization laboratory in a fasting state. Left and right wrists were prepped and draped in a sterile fashion. Access to the left radial artery was obtained using modified Seldinger technique. A 6-Zimbabwean Slender sheath was inserted in the left radial artery. Selective angiogram of the BONILLA to LAD graft was obtained using a 5-Zimbabwean OBI catheter. Angiography of the left and right coronary systems was obtained using the JL4 and JR4 diagnostic catheters respectively. Angiography of SVG to OM and SVG to ramus was obtained using JR4 catheter. We had significant difficulty locating the RCA graft and performed aortography which did not show any patent RCA graft. However, there was a faint runoff seen very late which appeared to be a JANY going to distal RCA. We then proceeded to attempt engaging the JANY through the left radial approach. This was exceedingly difficult. After several attempts, a decision was made to access the right radial artery via modified Seldinger technique, and selective angiogram of the right internal mammary artery graft to the RCA was obtained using 5-Zimbabwean OBI catheter. All grafts were patent. However, the BONILLA to LAD graft showed 90% anastomotic lesion. We decided to proceed with intervention of this lesion given the patient's non-STEMI and positive stress test. For PCI to the BONILLA to LAD anastomosis, a 6-Zimbabwean OBI guide was used via the left radial access. A Choice PT floppy 0.014-inch guidewire was used to cross the lesion. The lesion was predilated using a 2.0 x 20 mm balloon. Stenting was performed using a Synergy 2.25 x 16 mm stent deployed at high pressures. This resulted in excellent angiographic outcome without significant thrombus, dissection or spasm. All catheters were removed over a guidewire. The case ended without any complications. SIGNIFICANT FINDINGS 1. Left main coronary artery: Severe calcified 99% stenosis of the mid and distal left main coronary artery with DESKTOP SUPPORT SPECIALIST of the proximal LAD and subtotal occlusion of the proximal left circumflex. 2. LAD: The LAD fills via the BONILLA to LAD graft. There is a 90% anastomotic lesion of the BONILLA to LAD graft. Otherwise, diffuse mild plaquing without any obstructive CAD. Large diagonal fills via the BONILLA as well. LAD wraps around the apex and provides collaterals to distal PDA. 3. Ramus intermedius is a large vessel. DESKTOP SUPPORT SPECIALIST at the ostium fills via the SVG to ramus graft. 4. Left circumflex: Nondominant left circumflex with 1 large OM branch. DESKTOP SUPPORT SPECIALIST occlusion of the ostial left circumflex. The OM system and distal circumflex system fill via SVG to OM graft. 5. RCA: Large, dominant RCA with 99% septal stenosis in the mid portion heavily calcified. Distal RCA and branches fill via JANY to RCA graft. 6. Bypass grafts: BONILLA to LAD 90% anastomotic lesion. JANY to RCA widely patent. SVG to ramus widely patent. SVG to OM widely patent. ESTIMATED BLOOD LOSS: 100 mL. GRAFTS AND IMPLANTS: Drug-eluting stent x1. COMPLICATIONS: None. SPECIMEN REMOVED: None. FINAL RECOMMENDATIONS 1. Usual post percutaneous coronary intervention care. 2. Continue dual antiplatelet therapy for least 1 year, preferably longer. 3. Follow up in clinic 2 weeks post discharge. Job#: [id number]
== END 2018-07-25 12:29 | disposition home or self-care (01) | DRG 246 ==
LOC: ER 00:41 → ERHOLD 04:51 → MED/SURG2 18:08
PROVIDERS: ADMIT Internal Medicine; ATTEND Internal Medicine
PROC: 027034Z Dilation of Coronary Artery, One Artery with Drug-eluting Intraluminal Device, Percutaneous Approach (ICD-10-PCS; 2018-07-16)
PROC: 4A023N7 Measurement of Cardiac Sampling and Pressure, Left Heart, Percutaneous Approach (ICD-10-PCS; 2018-07-16)
PROC: B2131ZZ Fluoroscopy of Multiple Coronary Artery Bypass Grafts using Low Osmolar Contrast (ICD-10-PCS; 2018-07-16)
PROC: B2111ZZ Fluoroscopy of Multiple Coronary Arteries using Low Osmolar Contrast (ICD-10-PCS; 2018-07-16)
PROC: 0JH63XZ Insertion of Tunneled Vascular Access Device into Chest Subcutaneous Tissue and Fascia, Percutaneous Approach (ICD-10-PCS; principal; 2018-07-19)
PROC: 02HV33Z Insertion of Infusion Device into Superior Vena Cava, Percutaneous Approach (ICD-10-PCS; 2018-07-19)
PROC: 5A1D70Z Performance of Urinary Filtration, Intermittent, Less than 6 Hours Per Day (ICD-10-PCS; 2018-07-19)
PROC: 5A1D70Z Performance of Urinary Filtration, Intermittent, Less than 6 Hours Per Day (ICD-10-PCS; 2018-07-20)
PROC: 5A1D70Z Performance of Urinary Filtration, Intermittent, Less than 6 Hours Per Day (ICD-10-PCS; 2018-07-21)
PROC: 5A1D70Z Performance of Urinary Filtration, Intermittent, Less than 6 Hours Per Day (ICD-10-PCS; 2018-07-24)
DX: I13.2 Hypertensive heart and chronic kidney disease with heart failure and with stage 5 chronic kidney disease, or end stage renal disease (principal); I50.41 Acute combined systolic (congestive) and diastolic (congestive) heart failure; N18.5 Chronic kidney disease, stage 5; N17.9 Acute kidney failure, unspecified; I48.92 Unspecified atrial flutter; Q61.3 Polycystic kidney, unspecified; I25.810 Atherosclerosis of coronary artery bypass graft(s) without angina pectoris; Z91.19 Patient's noncompliance with other medical treatment and regimen; R60.1 Generalized edema; N40.0 Benign prostatic hyperplasia without lower urinary tract symptoms; N28.9 Disorder of kidney and ureter, unspecified; Z95.1 Presence of aortocoronary bypass graft; E78.5 Hyperlipidemia, unspecified; D72.829 Elevated white blood cell count, unspecified
CPT/HCPCS: 36415; 36565; 51700; 71045; 71046; 74470; 76770; 80048; 80053; 80061; 81001; 82550; 82553; 82948; 83036; 83735; 83880; 84443; 84484; 85025; 85347; 85610; 85730; 86704; 86706; 87340; 90962; 92937; 93005; 93306; 93455; 94640; 97139; 99284; C1769; C1874; C1887; J1160; J1644; J1940; J2001; J2150; J2250; J2270; J2405; J2920; J7030; J7040; Q9967